=== PATIENT | female | born 1985 | race Caucasian/White ===

== ENCOUNTER 2019-03-11 13:04 | Inpatient (IN) | payer SELFPAY ==
[~2019-03-11] VITALS: Ht 162.6 cm; Wt 59.0 kg
[2019-03-11] MEDS ORDERED: KETOROLAC TROMETHAMINE 30 MG/ML VIAL IM ONE (13:36)
--- NOTE | 2019-03-11 14:45 | Diagnostic Imaging Report ---
EXAMINATION: SHOULDER LEFT COMPLETE INDICATION: Shoulder pain COMPARISON: None FINDINGS: Internal and external rotation views of the left shoulder demonstrate no acute fracture or dislocation. Alignment is anatomic. A mortise calcific density superficial to the left humeral head is compatible with calcific tendinopathy. Please refer to the concurrently reported chest radiograph for intrathoracic findings. IMPRESSION: No acute osseous injury. Calcific tendinopathy of the left rotator cuff. Signed by: Florida Merchant MD on 03/11/2019 2:42 PM
[2019-03-11] MEDS ORDERED: SODIUM CHLORIDE 0.9% 1000ML 1,000 ML ONE ×2 (14:46→16:15)
--- NOTE | 2019-03-11 14:49 | Diagnostic Imaging Report ---
EXAMINATION: CHEST 2 VIEWS INDICATION: Chest pain COMPARISON: None FINDINGS: LINES/TUBES:None LUNGS/PLEURA:There is extensive opacification of the left lung, likely reflecting a combination of loculated left pleural effusion and left lung airspace consolidation. The right lung is clear. MEDIASTINUM:The heart is at the upper limits of normal in size. BONES/SOFT TISSUES:No acute osseous injury. ABDOMEN:No free air under the diaphragm. IMPRESSION: Extensive opacification of the left lung likely reflects combination of loculated left pleural effusion and airspace consolidation which can be seen with pneumonia, aspiration, or pulmonary hemorrhage. RECOMMENDATIONS: Chest CT. The above findings were discussed with Dr. Blank on 03/11/2019 2:42 PM, who responded indicating that the communication was understood. Signed by: Florida Merchant MD on 03/11/2019 2:46 PM
[2019-03-11] MEDS ORDERED: LEVOFLOXACIN 750MG/D5W 150ML 150 ML IV ONE (15:00)
[2019-03-11] MEDS ORDERED: PIPERACILLIN/TAZO 4.5 GM 100 ML IV ONE ×2 (15:00→16:45)
[2019-03-11 15:10] LABS: BASOPHILS # (AUTO) 0.1 (0.0-0.1); BASOPHILS % 0.2 % (0.0-1.0); EOSINOPHILS # (AUTO) 0.1 (0.0-0.4); EOSINOPHILS % 0.2 % (0.0-6.0); HEMATOCRIT 31.8 % (34.2-44.1); HEMOGLOBIN 9.6 g/dL (12.0-16.0); LYMPHOCYTES # (AUTO) 0.9 (1.0-3.2); LYMPHOCYTES % 2.1 % (18.0-39.1); MEAN CORPUSCULAR HEMOGLOBIN 21.8 pg (28-32); MEAN CORPUSCULAR HGB CONC 30.2 g/dL (31-35); MEAN CORPUSCULAR VOLUME 72.1 fL (81-99); MONOCYTES # (AUTO) 2.1 (0.2-0.8); MONOCYTES % 5.1 % (4.4-11.3); NEUTROPHILS # (AUTO) 36.8 (2.1-6.9); NEUTROPHILS % 89.5 % (38.7-80.0); PLATELET COUNT 476 x10e3/uL (140-360); RED BLOOD COUNT 4.41 x10e6/uL (3.6-5.1); RED CELL DISTRIBUTION WIDTH 17.1 % (11.7-14.4)
[2019-03-11 15:26] LABS: ALBUMIN 1.9 g/dL (3.5-5.0); ALBUMIN/GLOBULIN RATIO 0.4 (0.8-2.0); ALKALINE PHOSPHATASE 112 IU/L (40-150); ANION GAP 15.8 mmol/L (8-16); BLOOD UREA NITROGEN 23 mg/dL (7-26); BUN/CREATININE RATIO 31 (6-25); CALCIUM 10.1 mg/dL (8.4-10.2); CARBON DIOXIDE 26 mmol/L (22-29); CHLORIDE 93 mmol/L (98-107); CREATININE, SERUM 0.75 mg/dL (0.57-1.11); EST GLOMERULAR FILTRATION RATE > 60 ML/MIN (60-); GLUCOSE 129 mg/dL (74-118); POTASSIUM 3.8 mmol/L (3.5-5.1); SODIUM 131 mmol/L (136-145)
[2019-03-11 15:29] LABS: ALANINE AMINOTRANSFERASE < 6 IU/L (0-55)
[2019-03-11] MEDS ORDERED: MORPHINE SULFATE 2 MG/ML SYR 1ML IV PRN (15:30)
[2019-03-11] MEDS ORDERED: MORPHINE SULFATE INJ 4 MG/ML INJ 1ML IV PRN ×2 (15:30→19:30)
--- NOTE | 2019-03-11 16:00 | Diagnostic Imaging Report ---
EXAMINATION: CT scan of the chest without contrast. TECHNIQUE: Helical CT images of the chest were performed from the lung apices to the level of the adrenal glands. No intravenous contrast was administered . Coronal and sagittal reformatted images were obtained.Dose modulation, iterative reconstruction, and/or weight based adjustment of the mA/kV was utilized to reduce the radiation dose to as low as reasonably achievable. COMPARISON: None. CLINICAL HISTORY:Shoulder pain DISCUSSION: ABSENCE OF INTRAVENOUS CONTRAST DECREASES SENSITIVITY FOR DETECTION OF FOCAL LESIONS AND VASCULAR PATHOLOGY. LINES/TUBES: None. LUNGS AND AIRWAYS: The right lung is clear. Areas of atelectasis in the left lung PLEURA: Large loculated pleural effusion throughout the left hemithorax. HEART AND MEDIASTINUM: The thyroid gland is normal. The heart and pericardium are within normal limits. LYMPH NODES: Prominent number mediastinal lymph nodes ABDOMEN: Limited contrast-enhanced views of the upper abdomen show no abnormality within the visualized liver, spleen, pancreas, or kidneys. The adrenal glands are normal. BONES AND SOFT TISSUES: Focus of calcific tendinopathy supraspinatus. IMPRESSION: Large loculated left pleural effusion with areas of atelectasis. Recommend fluid sampling. Calcific tendinopathy of the supraspinatus. Signed by: Dr. Alexandru Goodson M.D. on 03/11/2019 3:56 PM
--- OUTSIDE RECORDS SUMMARY | 2019-03-11 16:03 | XMS REPORT ---
Author Author [facility] Address Unknown Phone Unavailable Care Team Providers Care International Student Counselor Name Role Phone Suleman MENA Unavailable Unavailable Problems This patient has no known problems. Allergies, Adverse Reactions, Alerts This patient has no known allergies or adverse reactions. Medications This patient has no known medications. Results Test Description Test Time Test Comments Text Results Atomic Results Result Comments CT CHEST WO 2019-03-11 15:51:00 [facility] [address] [place] [address] Patient Name: LAURE AYALA MR #: [id number] : 1985 Age/Sex: 33/F Req #: [id number] Adm Physician: MIKE MENA MD Ordered by: DOM MARROQUIN DO Report #: [id number] Location: [facility] Room/Bed: [place] [address] Procedure: [id number] CT/CT CHEST WO Exam Date: Exam Time: REPORT STATUS: Signed EXAMINATION: CT scan of the chest without contrast. TECHNIQUE: Helical CT images of the chest were performed from the lung apices to the level of the adrenal glands. No intravenous contrast was administered . Coronal and sagittal reformatted images were obtained.Dose modulation, iterative reconstruction, and/or weight based adjustment of the mA/kV was utilized to reduce the radiation dose to as low as reasonably achievable. COMPARISON: None. CLINICAL HISTORY:Shoulder pain DISCUSSION: ABSENCE OF INTRAVENOUS CONTRAST DECREASES SENSITIVITY FOR DETECTION OF FOCAL LESIONS AND VASCULAR PATHOLOGY. LINES/TUBES: None. LUNGS AND AIRWAYS: The right lung is clear. Areas of atelectasis in the left lung PLEURA: Large loculated pleural effusion throughout the left hemithorax. HEART AND MEDIASTINUM: The thyroid gland is normal. The heart and pericardium are within normal limits. LYMPH NODES: Prominent number mediastinal lymph nodes ABDOMEN: Limited contrast-enhanced views of the upper abdomen show no ab normality within the visualized liver, spleen, pancreas, or kidneys. The adrenal glands are normal. BONES AND SOFT TISSUES: Focus of calcific tendinopathy supraspinatus. IMPRESSION: Large loculated left pleural effusion with areas of atelectasis. Recommend fluid sampling. Calcific tendinopathy of the supraspinatus. Signed by: Dr. Nura Garcia M.D. on 03/11/2019 3:56 PM Dictated By: NURA GARCIA MD 1556 Transcribed By: IRAJ on 03/11/19 1556 COPY TO: DOM MARROQUIN DO CHEST 2 VIEWS 2019-03-11 14:42:00 [place] [address] Patient Name: LAURE AYALA MR #: [id number] : 1985 Age/Sex: 33/F Req #: [id number] Adm Physician: Ordered by: DOM MARROQUIN DO Report #: [id number] Location: ER Room/Bed: Procedure: [id number] DX/CHEST 2 VIEWS Exam Date: 03/11/19 Exam Time: 1357 REPORT STATUS: Signed EXAMINATION: CHEST 2 VIEWS INDICATION: Chest pain COMPARISON: None FINDINGS: LINES/TUBES:None LUNGS/PLEURA:There is extensive opacification of the left lung, likely reflecting a combination of loculated left pleural effusion and left lung airspace consolidation. The right lung is clear. MEDIASTINUM:The heart is at the upper limits of normal in size. BONES/SOFT TISSUES:No acute osseous injury. ABDOMEN:No free air under the diaphragm. IMPRESSION: Extensive opacification of the left lung likely reflects combination of loculated left pleural effusion and airspace consolidation which can be seen with pneumonia, aspiration, or pulmonary hemorrhage. RECOMMENDATIONS: Chest CT. The above findings were discussed with Dr. Marroquin on 03/11/2019 2:42 PM, who responded indicating that the communication was understood. Signed by: Chandrika Merchant MD on 03/11/2019 2:46 PM Dictated By: CHANDRIKA MERCHANT MD 1446 Transcribed By: IRAJ on 03/11/19 1446 COPY TO: DOM MARROQUIN DO SHOULDER LEFT COMPLETE 2019-03-11 14:40:00 [place] [address] Patient Name: LAURE AYALA MR #: [id number] : 1985 Age/Sex: 33/F Req #: [id number] Adm Physician: Ordered by: DOM MARROQUIN DO Report #: [id number] Location: ER Room/Bed: Procedure: [id number] DX/SHOULDER LEFT COMPLETE Exam Date: Exam Time: REPORT STATUS: Signed EXAMINATION: SHOULDER LEFT COMPLETE INDICATION: Shoulder pain COMPARISON: None FINDINGS: Internal and external rotation views of the left shoulder demonstrate no acute fracture or dislocation. Alignment is anatomic. A mortise calcific density superficial to the left humeral head is compatible with calcific tendinopathy. Please refer to the concurrently reported chest radiograph for intrathoracic findings. IMPRESSION: No acute osseous injury. Calcific tendinopathy of the left rotator cuff. Signed by: Chandrika Merchant MD on 03/11/2019 2:42 PM Dictated By: CHANDRIKA MERCHANT MD 1442 Transcribed By: IRAJ on 03/11/19 1442 COPY TO: DOM MARROQUIN DO
[2019-03-11] MEDS ORDERED: SODIUM CHLORIDE 0.9% 1000ML 1,000 ML IV STA ×2 (16:13)
[2019-03-11] MEDS: ONDANSETRON HCL INJ 2MG/ML 2ML 2 MG/ML VIAL IV PRN (16:34)
--- NOTE | 2019-03-11 16:50 | NUR ---
DR Chato BRAMBILA AT PT BEDSIDE
[2019-03-11] MEDS ORDERED: LIDOCAINE HCL 1% LOCAL INJ 20 ML VIAL ONE ×2 (17:27→20:07)
[2019-03-11] MEDS: SODIUM CHLORIDE 0.9% 1000ML 1,000 ML IV SCH (17:52)
[2019-03-11] MEDS: VANCOMYCIN 1GM/NS 250 ML 250 ML IV SCH (17:52)
--- NOTE | 2019-03-11 19:11 | NUR ---
PT AWAKE ALERT SKIN W/D RESP NONLAB. NAD NOTED. CHEST TUBE SETUP AT BEDSIDE.
--- NOTE | 2019-03-11 19:29 | NUR ---
REPEAT LACTIC COLLECTED AND SENT
[2019-03-11] MEDS: MORPHINE SULFATE 2 MG/ML SYR 1ML IV PRN (20:15)
[2019-03-11 20:27] LABS: BAND NEUTROPHILS % (MANUAL) 2 %; LYMPHOCYTES % (MANUAL) 2 % (19-48); METAMYELOCYTES % (MANUAL) 3 % (0-0); MONOCYTES % (MANUAL) 3 % (3.4-9.0); NEUTROPHILS % (MANUAL) 90 % (40-74)
[2019-03-11 20:28] LABS: ANISOCYTOSIS SLIGHT; HYPOCHROMASIA SLIGHT; PLATELET ESTIMATE SLIGHTLY INCREASED; PLATELET MORPHOLOGY COMMENT NORMAL; POIKILOCYTOSIS SLIGHT; RBC MORPHOLOGY COMMENT NORMAL
--- NOTE | 2019-03-11 20:30 | NUR ---
DR CLOUD AT BEDSIDE, ASSISTED WITH CHEST TUBE INSERTION LEFT CHEST WALL. TOLERATED WELL. PORTABLE CXR ORDERED
--- NOTE | 2019-03-11 20:35 | NUR ---
CHEST TUBE DRESSED WITH ALEXA GAUZE,4X4, AND SECURED WITH FOAM TAPE. TOLERATED WELL.
--- NOTE | 2019-03-11 20:45 | NUR ---
REGISTERED NURSING PROFESSOR AT BEDSIDE FOR CXR
--- NOTE | 2019-03-11 20:55 | Diagnostic Imaging Report ---
Examination: Single AP view of the chest. COMPARISON: None. INDICATION: Chest tube DISCUSSION: Lines/tubes: Interval placement of a left-sided chest tube Lungs: Large loculated pleural effusion with areas of atelectasis. Heart and mediastinum: The heart and the mediastinum are unremarkable. Bones and soft tissues: No acute bony abnormalities. IMPRESSION: 1. Left chest tube with persistent large left loculated effusion and atelectasis Signed by: Dr. Alexandru Goodson M.D. on 03/11/2019 8:52 PM
--- NOTE | 2019-03-11 20:55 | NUR ---
DR CLOUD REVIEWED CXR POST PROCEDURE. AWAKE ALERT SKIN W/D RESP NONLAB. NAD NOTED. PT STATES SHE FEELS BETTER POST PROCEDURE.
--- NOTE | 2019-03-11 20:59 | NUR ---
Report received from MATTEO Garza. Patient admitted in unit @ 2058 by stretcher. Patient alert/oriented x3. Patient had left side dressing with chest tube continued. Patient continued on 2liters oxygen via nasal nasal. Respiration even and unlabored. No SOB noted. Head to toe assessment completed. No skin breakdown noted. Bed in lower position,locked. Call moore within reach. Patient instructed to call fro help as needed, verbalized and understand. Will continue to monitor.
[2019-03-11 21:16] LABS: BODY FLUID APPEARANCE TURBID; BODY FLUID COLOR RED; BODY FLUID TYPE PLEURAL; RBC,BODY FLUID 32373 cells/uL; WBC,BODY FLUID 29700 cells/uL
[2019-03-11 22:00] VITALS: BP 108/66
[2019-03-11 22:07] LABS: LYMPHOCYTES,BODY FLUID 72 %; MONO/MACROPHG,BODY FLUID 16 %; NEUTROPHILS,BODY FLUID 12 %
[2019-03-11] MEDS: CEFEPIME 1GM/NS 0.9% 50 ML 50 ML IV SCH (22:55)
[2019-03-11 23:03] VITALS: BP 108/66
[2019-03-11 23:12] VITALS: BP 108/66
[2019-03-12] VITALS (9 sets, daily range): BP systolic 109–126; BP diastolic 54–114
[2019-03-12] MEDS: MORPHINE SULFATE 2 MG/ML SYR 1ML IV PRN ×2 (00:12→11:05)
[2019-03-12] MEDS: ONDANSETRON HCL INJ 2MG/ML 2ML 2 MG/ML VIAL IV PRN ×2 (00:13→11:05)
--- NOTE | 2019-03-12 00:20 | Consultation ---
DATE OF CONSULTATION: 03/11/2019 Pulmonary Critical Care Consultation CHIEF COMPLAINT: Fever, malaise, and loculated pleural effusion. 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 She has no other past medical history. She reports malaise and fatigue for the past week. She has noticed some cough and some decreased appetite. She has a low-grade fever. When she came to the ER, she had infiltrate and effusion on the left lung. A subsequent CT scan showed a loculated left pleural effusion. PAST SURGICAL HISTORY: 1. Status post removal of the right eye because of retinoblastoma. 2. No prior history of pneumonia, respiratory problems, or cardiac disease. PAST MEDICAL HISTORY: 1. No history of asthma. 2. History of retinoblastoma. ALLERGIES: NO KNOWN DRUG ALLERGIES. SOCIAL HISTORY: The patient is not a smoker. She is not a drinker. FAMILY HISTORY: Her father was recently diagnosed with cancer. REVIEW OF SYSTEMS: Low-grade fevers and malaise. No headache. The patient has some cough and some mild dyspnea. She reports pain in the left shoulder area and left lateral rib cage. She denies nausea, vomiting. There is no abdominal pain. She has no leg edema. PHYSICAL EXAMINATION: VITAL SIGNS: The patient is afebrile. The vital signs are stable. HEENT: Shows no facial swelling or erythema. CARDIAC: Reveals regular rate and rhythm with normal S1 and S2. LUNGS: Auscultation of lungs shows decreased breath sounds on the left side. ABDOMEN: Soft, nontender. There is no rebound or guarding. EXTREMITIES: Show no leg edema or calf tenderness. There is no cyanosis or clubbing. SKIN: Shows no rashes. NEUROLOGIC: Shows no focal abnormalities. RADIOGRAPHIC DATA: CT scan of the chest shows a loculated left pleural effusion. LABORATORY DATA: White blood cell count is 41 and hemoglobin is 9.6. The platelet count is normal. IMPRESSION: 1. Community-acquired pneumonia with parapneumonic effusion and sepsis, present on admission. 2. Loculated left pleural effusion, suggestive of possible empyema. 3. Remote history of retinoblastoma. PLAN: 1. The patient will need an ultrasound-guided thoracentesis with pleural fluid analysis to rule out empyema. 2. CT Surgery consultation depending on results of thoracentesis. 3. Antibiotics. 4. Intravenous fluids. MD ALBER Jacques/CARLYN /[id number]
--- NOTE | 2019-03-12 01:15 | NUR ---
Called to notified about patient's Heart rate above 130 and Temp:100.1, Resp:28 and BP:105/67. ordered p/o Tylenol 650mg q6 PRN and IV Toradol 15mg q6 PRN at this time.
[2019-03-12] MEDS: ACETAMINOPHEN 325 MG TAB PO PRN ×2 (01:16→17:41)
[2019-03-12] MEDS ORDERED: ACETAMINOPHEN 325 MG TAB ONE (01:18)
--- NOTE | 2019-03-12 01:25 | Operative Report ---
DATE OF PROCEDURE: 03/11/2019 SURGEON: Prince Tenorio MD PROCEDURE: Ultrasound-guided thoracentesis. CONSENT: Consent was obtained from the patient. PREOPERATIVE DIAGNOSIS: Loculated left pleural effusion. POSTOPERATIVE DIAGNOSIS: Loculated left pleural effusion. ANESTHESIA: 1% lidocaine. PROCEDURE IN DETAIL: The patient was placed in upright position leaning forward. The left lateral chest was prepped sterilely. The area over the left posterior intercostal space over the 8th rib was anesthetized. Ultrasound was used to visualize the pleural space. There were pockets of loculated fluid with some echogenic material within the fluid. A 21-gauge needle was used to find the pleural space, but no fluid could be withdrawn. COMPLICATIONS: None. ESTIMATED BLOOD LOSS: None. Prince Tenorio MD [facility]/MODL /[id number]
--- NOTE | 2019-03-12 02:00 | History and Physical ---
CHIEF COMPLAINT: Left shoulder pain. HISTORY OF PRESENT ILLNESS: This is a 33-year-old female with history of retinoblastoma in the past, comes into the emergency room department with complaints of left shoulder pain after she reports that she was moving some objects leading to the left shoulder pain. The patient reports this occurred about several days ago when she was moving some furniture. The patient presented to the ER for further management and care. While here, she was found to have a temperature of 100.2, white count of 41, and imaging studies consistent with a complete whiteout of her left lung. The patient denies any cough, congestion, recent sickness, chest pain, or any other complaints. She does complain of pleuritic chest pain on deep inspiration. She does report having difficult time taking a deep breath. The patient was seen and evaluated at bedside on the medical floor. Currently, she is doing well and stable. Vital signs were stable when I evaluated her and systolic blood pressure was 117/66. REVIEW OF SYSTEMS: Pertinent positives left shoulder pain, shortness of breath. Pertinent negatives: Denies any chest pain, palpitation, nausea, vomiting, diarrhea, dysuria, hematuria, frequency, urgency, lightheadedness, dizziness, abdominal pain, headaches, cough, congestion, fever, or any other complaints. The rest of 14-point review of systems are reviewed with the patient and are negative. ALLERGIES: TO METHOCARBAMOL AND TRAMADOL. HOME MEDICATIONS: None. PAST MEDICAL HISTORY: Retinoblastoma. PAST SURGICAL HISTORY: Reports none. FAMILY HISTORY: Hypertension and diabetes. SOCIAL HISTORY: No drugs. No alcohol. Does not smoke. Good social support. PHYSICAL EXAMINATION: VITAL SIGNS: Temperature is 98.5, pulse 96, respiratory rate is 12, blood pressure is 117/66, and pulse ox 97% on room air. GENERAL: Not in acute distress. Alert and oriented x3. Cooperative on examination. HEENT: Head normocephalic, atraumatic. Eyes; pupils are equal, round, and reactive to light bilaterally. Extraocular movements intact bilaterally. NECK: Supple. Good range of motion. Throat, no evidence of erythema or exudates in the posterior pharynx. Has poor dentition. PULMONARY: She has decreased breath sounds in the left lung field still well with some very slight wheezing, no crackles. CARDIOVASCULAR: Positive S1 and S2. No murmurs, rubs, or gallops appreciated. ABDOMEN: Soft, nondistended, and nontender to palpation. Bowel sounds present. MUSCULOSKELETAL: Strength is 5/5 throughout. No evidence of any muscle deficits on examination. No weakness appreciated. NEUROLOGIC: Cranial nerves II through XII grossly intact. No evidence of any neurological deficits on exam. SKIN: Intact. Warm to touch. Good cap refill. PSYCHIATRIC: Normal affect and mood. EXTREMITIES: No edema. Good range of motion throughout. LAB FINDINGS: Show white count was 41, hemoglobin 9.6, hematocrit 31, MCV 72, and platelets of 476. Chemistry: Sodium 131, potassium 3.8, chloride 93, bicarb 26, anion gap of 15, BUN is 23, creatinine 0.75, glucose 129. Lactic acid was 22, calcium 10.1, total bilirubin was 0.4, AST 11, ALT 6, alkaline phosphatase 112, total protein 7.3, and albumin 1.9. MICROBIOLOGY: Blood cultures are pending. IMAGING STUDIES: Shoulder x-ray, no acute osseous injury. Calcific tendinopathy in the left rotator cuff. Chest x-ray shows extensive opacification of the left lung likely reflects combination of likely left pleural effusion and airspace consolidation, which may be seen with pneumonia aspiration and pulmonary hemorrhage. CT chest shows large loculated left pleural effusion with areas of atelectasis. IMPRESSION: 1. Sepsis with loculated left lung likely due to underlying pneumonia. 2. Community-acquired pneumonia. 3. Leukocytosis with fever secondary to #1. PLAN: At this time CT imaging and chest x-ray results noted. Pulmonary was consulted, attempted to aspirate some fluid from the loculation, but unsuccessful. CT surgery is now consulted to help with this case. She will likely need some sort of decortication. ID was consulted. She is on broad-spectrum IV antibiotics IV vancomycin and cefepime. Continue with pain control. Monitor blood cultures. Resume same home medications once they are available. Continue with IV fluids, regular diet. CONSULTANTS: Pulmonary, ID, and CT Surgery. MD CIELO Small/CARLYN /[id number]
--- NOTE | 2019-03-12 02:50 | Consultation ---
DATE OF CONSULTATION: 03/11/2019 REASON FOR CONSULTATION: Left pleural effusion; requested by Dr. Prince Tenorio. HISTORY OF PRESENT ILLNESS: I saw and evaluated this patient on March 11, 2019. She is a 33-year-old lady without any real past medical history, who came into the emergency room complaining of left chest pain. This had apparently been going on for the last several days. A chest x-ray was obtained and revealed a large left pleural effusion with consolidation of much of the left chest. CT scan confirmed the presence of a left pleural effusion. Thoracentesis was performed, but did not return much fluid. Surgical consultation is now requested. MEDICATIONS AT HOME: None. ALLERGIES: NONE. SOCIAL HISTORY: Negative for smoking, alcohol, IV drugs. Lives at home with her mother. FAMILY HISTORY: Negative for early coronary artery disease or exposure to TB. Negative for pulmonary problems. PAST MEDICAL HISTORY: Unremarkable. There is no history of smoking. The patient denies sputum production. No history of fevers or chills recently. Has not had any previous pulmonary problems. REVIEW OF SYSTEMS: GENERAL: Positive for fatigue and malaise. NEUROLOGIC: Negative for focal weakness in extremities or dysarthria. HEENT: Negative for decreased vision or decreased hearing. CARDIAC: Positive for chest pain. Negative for palpitation. PULMONARY: Denies shortness of breath or wheezing. GI: No constipation or diarrhea. : Negative for hematuria or dysuria. ENDOCRINE: Negative for polyuria or polydipsia. VASCULAR: Negative for claudication. SKIN: Negative for rashes or itching. HEMATOLOGIC: Negative for clotting or bleeding. INFECTIOUS: Denies fevers or sweating. PSYCHIATRIC: Negative for depression or anxiety. PHYSICAL EXAMINATION: GENERAL: Well-developed, well-nourished lady, sitting up on the gurney in the emergency room. VITAL SIGNS: Blood pressure 140/70, pulse 85 and regular, and respirations 16 and unlabored. NECK: Supple. Nontender, but no JVD. CARDIAC: Shows a regular rate and rhythm. There is a normal S1, S2. No S3, S4, rub, or murmur. LUNGS: Absent breath sounds on the left with some rhonchi. On the right, breath sounds are full and clear. ABDOMEN: Globoid, benign. Good bowel sounds. No hepatosplenomegaly. BACK: No CVA tenderness. No muscular spasm. EXTREMITIES: No cyanosis, clubbing, or edema. VASCULAR: Carotids 2+/2+ bilaterally. No carotid bruits. Radials 2+/2+ bilaterally. Femorals 2+/2+ bilaterally. SKIN: No rashes or nonhealing ulcers. MUSCULOSKELETAL: Full range of motion at all joints. No joint swelling. NEUROLOGIC: Cranial nerves II through XII intact. Sensation intact to light touch and pinprick bilaterally. Strength 5/5 in all extremities. LYMPHATICS: Negative for cervical, clavicular, or femoral adenopathy. IMAGING: CT scan and chest x-ray are reviewed and as are above. Left chest is largely opacified. There is some aeration of the left lung on CT scan. CT scan has been read as left pleural effusion. IMPRESSION: Large loculated left pleural effusion. I agree with the need for drainage via thoracostomy tube. I described the procedure to the patient. I told her that the risks would include , bleeding, infection, heart attack, stroke, pneumonia, prolonged ICU stay, mechanical ventilation, recurrence of the effusion, probable need for surgical drainage in the future, et cetera. The patient stated that she understood, had no further questions and I gave consent to proceed. Thank you very much for asking me to see this nice lady. MD ADRIAN FaithL/MODL /[id number]
[2019-03-12] MEDS: KETOROLAC TROMETHAMINE 30 MG/ML VIAL IV PRN ×2 (03:08→12:59)
[2019-03-12] MEDS: SODIUM CHLORIDE 0.9% 1000ML 1,000 ML IV SCH ×2 (03:11→07:21)
--- NOTE | 2019-03-12 03:55 | Operative Report ---
DATE OF PROCEDURE: 03/11/2019 SURGEON: Jean Graham MD PREOPERATIVE DIAGNOSIS: Loculated left pleural effusion. POSTOPERATIVE DIAGNOSIS: Loculated left pleural effusion. PROCEDURE: Placement of left chest tube. INDICATIONS: This is a 33-year-old lady, who presented to the emergency room with a loculated left pleural effusion. Chest x-ray and CT scan showed opacification of nearly the entire left lung. A thoracentesis was not beneficial. Chest tube drainage is now recommended. Prior to the procedure, the patient was informed of the risks of the procedure including , bleeding, infection, heart attack, stroke, pneumonia, prolonged ICU stay, possible need for further surgery, et cetera. She stated that she understood, no further questions, and wanted to proceed. FINDINGS: Uneventful left chest tube placement. PROCEDURE IN DETAIL: Procedure done at the bedside in the emergency room under sterile conditions with a 1% Xylocaine local anesthesia. A #28 [place] chest tube inserted uneventfully. Return from the chest tube was foul smelling and quite thick. Digital exam during the procedure seemed to show loculated lung. Chest tube affixed in place. Chest x-ray ordered. Sterile dressings applied. Jean Graham MD [facility]/MODL /[id number]
[2019-03-12] MEDS: VANCOMYCIN 1GM/NS 250 ML 250 ML IV SCH ×2 (05:15→17:00)
[2019-03-12 05:26] LABS: BASOPHILS % 0.2 % (0.0-1.0); EOSINOPHILS % 0.1 % (0.0-6.0); HEMATOCRIT 26.2 % (34.2-44.1); HEMOGLOBIN 7.6 g/dL (12.0-16.0); LYMPHOCYTES # (AUTO) 1.1 (1.0-3.2); LYMPHOCYTES % 4.2 % (18.0-39.1); MEAN CORPUSCULAR HEMOGLOBIN 21.7 pg (28-32); MEAN CORPUSCULAR VOLUME 74.6 fL (81-99); MONOCYTES # (AUTO) 1.5 (0.2-0.8); MONOCYTES % 5.7 % (4.4-11.3); NEUTROPHILS # (AUTO) 22.7 (2.1-6.9); NEUTROPHILS % 88.8 % (38.7-80.0); PLATELET COUNT 295 x10e3/uL (140-360); RED BLOOD COUNT 3.51 x10e6/uL (3.6-5.1); RED CELL DISTRIBUTION WIDTH 17.2 % (11.7-14.4)
[2019-03-12 06:03] LABS: ALBUMIN 1.5 g/dL (3.5-5.0); ALBUMIN/GLOBULIN RATIO 0.3 (0.8-2.0); ALKALINE PHOSPHATASE 89 IU/L (40-150); ANION GAP 14.7 mmol/L (8-16); BLOOD UREA NITROGEN 19 mg/dL (7-26); BUN/CREATININE RATIO 35 (6-25); CALCIUM 8.9 mg/dL (8.4-10.2); CARBON DIOXIDE 21 mmol/L (22-29); CHLORIDE 102 mmol/L (98-107); CREATININE, SERUM 0.55 mg/dL (0.57-1.11); EST GLOMERULAR FILTRATION RATE > 60 ML/MIN (60-); GLUCOSE 90 mg/dL (74-118); POTASSIUM 3.7 mmol/L (3.5-5.1); SODIUM 134 mmol/L (136-145)
[2019-03-12 06:09] LABS: ALANINE AMINOTRANSFERASE < 6 IU/L (0-55)
--- NOTE | 2019-03-12 06:43 | NUR ---
Paged Dr Santos and left massages to answering service about MD's consult at this time.
[2019-03-12] MEDS: CEFEPIME 1GM/NS 0.9% 50 ML 50 ML IV SCH ×3 (07:07→21:28)
--- NOTE | 2019-03-12 07:27 | NUR ---
Report given to oncoming nurse, walking round done.
[2019-03-12 07:59] LABS: LYMPHOCYTES % (MANUAL) 3 % (19-48); MONOCYTES % (MANUAL) 4 % (3.4-9.0); NEUTROPHILS % (MANUAL) 93 % (40-74)
[2019-03-12 08:00] LABS: HYPOCHROMASIA SLIGHT; PLATELET ESTIMATE ADEQUATE; RBC MORPHOLOGY COMMENT ABNORMAL
--- NOTE | 2019-03-12 12:06 | NUR ---
informed dr lai, patient c/o substernal chest pain, HR 129-130, ORDERS RECEIVED FOR CARDIAC MARKERS X3, ONCOMING NURSE INFORMED
[2019-03-12] MEDS: HYDROCODONE/APAP 5MG-325MG TAB PO PRN (13:07)
[2019-03-12] MEDS: METOPROLOL TARTRATE 25 MG TAB PO SCH ×2 (14:48→21:28)
[2019-03-12 15:42] LABS: CREATINE KINASE MB 0.6 ng/mL (0-5.0)
--- NOTE | 2019-03-12 16:02 | Progress Note ---
DATE: 03/12/2019 Medicine Progress Note SUBJECTIVE: The patient had status post chest tube placed yesterday by CT Surgery. She is currently doing well. She still has pain around the site of the chest tube. She is on pain medications as well as Toradol. Overall, her heart rate is slightly elevated likely due to pain. She is otherwise doing okay with no other issues. She is on broad-spectrum IV antibiotics. Her white count did improve. Several consultants were involved in this patient's care. PHYSICAL EXAMINATION: VITAL SIGNS: Temperature is 97, T-max 100.1, pulse 114, respiratory rate is 24, blood pressure is 111/74, pulse ox 100% on nasal cannula. GENERAL: Not in acute distress, alert, oriented x3. Cooperative on examination. HEENT: Head normocephalic, atraumatic. Eyes; pupils are equal, round, and reactive to light bilaterally. Extraocular movements are intact bilaterally. Throat; no evidence of erythema or exudates in the posterior pharynx. Has poor dentition. NECK: Supple. Good range of motion. PULMONARY: Clear to auscultation bilaterally. No wheezing, rales, or rhonchi. No crackles appreciated. Decreased breath sounds in the left lung field. Chest tube on the left chest wall. CARDIOVASCULAR: Positive S1, S2. No murmurs, rubs, or gallops appreciated. ABDOMEN: Soft, nondistended, and nontender to palpation. Bowel sounds present. MUSCULOSKELETAL: Strength is 5/5 throughout. No evidence of any muscle deficits on examination. No weakness appreciated. NEUROLOGIC: Cranial nerves II through XII grossly intact. No evidence of any neurological deficits on exam. SKIN: Intact. Warm to touch. Good cap refill. PSYCHIATRIC: Normal affect and mood. EXTREMITIES: No edema, good range of motion throughout. LABORATORY DATA: White count is 25 much improved for 41, hemoglobin 7.6, hematocrit 26, platelets of 295. Chemistry; sodium 134, potassium 3.7, chloride 102, bicarb 21, anion gap of 14, BUN 90, creatinine 0.55, glucose is 90. Lactic acid improved now to 8.3, normal in this hospital, calcium 8.9, albumin 1.5. fluid shows significant WBCs and RBCs. MICROBIOLOGY: Body fluid Gram stain shows gram-positive cocci in pairs, pending final growth. Blood cultures, no growth to date. IMAGING STUDIES: This is a chest x-ray post left-sided chest tube, shows persistent large left loculated effusion and atelectasis. IMPRESSION: 1. Sepsis with loculated left lung, status post chest tube placement with drainage. 2. Community-acquired pneumonia. 3. Leukocytosis and fever secondary to sepsis with loculated left lung, status post chest tube placement with drainage. 4. Sinus tachycardia, likely secondary to pain and fever and underlying sepsis. PLAN: At this time, she has a left-sided chest tube. Repeat chest x-ray still shows loculated effusion. It is still draining. CT surgery is following. We will likely need a thoracotomy sometime next week. Still pending pleural fluid, cultures, still on IV antibiotics. ID is following. Pulmonary is also consulted and monitoring closely. In relation to her underlying tachycardia, put on a low-dose beta john. I think this is all secondary to pain, fever, sepsis. Continue with pain control. She is on broad-spectrum IV antibiotics, being managed by Infectious Disease. CONSULTANTS: Pulmonary, ID, CT surgery. Will continue to follow with them. MD CIELO Small/CARLYN /[id number]
--- NOTE | 2019-03-12 16:53 | Progress Note ---
DATE: 03/12/2019 Pulmonary Progress Note SUBJECTIVE: The patient had a chest tube placed yesterday and has some purulent sanguinous drainage. She reports some symptomatic improvement. PHYSICAL EXAMINATION: VITAL SIGNS: The patient is afebrile. The vital signs are stable. HEENT: Shows no facial swelling or erythema. CARDIAC: Reveals regular rate and rhythm with normal S1 and S2. There are no murmurs or rubs heard. LUNGS: Auscultation of lungs shows clear breath sounds bilaterally. There are decreased breath sounds on the left side. ABDOMEN: Soft, nontender. There is no rebound or guarding. EXTREMITIES: Show no leg edema or calf tenderness. There is no cyanosis or clubbing. LABORATORY DATA: White blood cell count is 25. IMPRESSION: Community-acquired pneumonia with empyema. PLAN: 1. Continue thoracostomy drainage. 2. Discuss infusions of tPA and Pulmozyme into the pleural space with CT Surgery. 3. If no further improvement, the patient may require a limited thoracotomy. 4. Continue current antibiotics. 5. Repeat chest x-ray and CBC in the morning. Prince Tenorio MD [facility]/MODL /[id number]
[2019-03-12 18:32] LABS: BASOPHILS # (AUTO) 0.1 (0.0-0.1); BASOPHILS % 0.2 % (0.0-1.0); HEMATOCRIT 27.2 % (34.2-44.1); LYMPHOCYTES # (AUTO) 1.2 (1.0-3.2); LYMPHOCYTES % 4.1 % (18.0-39.1); MEAN CORPUSCULAR HEMOGLOBIN 21.7 pg (28-32); MEAN CORPUSCULAR HGB CONC 29.4 g/dL (31-35); MEAN CORPUSCULAR VOLUME 73.9 fL (81-99); MONOCYTES # (AUTO) 0.7 (0.2-0.8); MONOCYTES % 2.6 % (4.4-11.3); NEUTROPHILS # (AUTO) 26.7 (2.1-6.9); NEUTROPHILS % 92.1 % (38.7-80.0); PLATELET COUNT 461 x10e3/uL (140-360); RED BLOOD COUNT 3.68 x10e6/uL (3.6-5.1); RED CELL DISTRIBUTION WIDTH 17.2 % (11.7-14.4)
[2019-03-12 19:23] LABS: HIV 1&2 AB SCREEN NON-REACTIVE (NONREACTIVE)
--- NOTE | 2019-03-12 19:35 | NUR ---
Handoff report to oncoming nurse, patient in bed sitting in bed awake alert and oriented. Patient verbalizing needs, nurse made aware of [facility] @[id number] 03/13/19, verbalized understanding.
[2019-03-12 20:17] LABS: LYMPHOCYTES % (MANUAL) 5 % (19-48); MONOCYTES % (MANUAL) 3 % (3.4-9.0); NEUTROPHILS % (MANUAL) 92 % (40-74); PLATELET ESTIMATE MODERATELY INCREASED; RBC MORPHOLOGY COMMENT NORMAL
--- NOTE | 2019-03-12 21:29 | Consultation ---
DATE OF CONSULTATION: 03/12/2019 REASON FOR CONSULTATION: Pneumonia. HISTORY OF PRESENT ILLNESS: This patient was a very pleasant 33-year-old female. The patient comes in with 1 day onset of fever, chills, cough, shortness of breath. The patient came to the emergency room, where she was evaluated and admitted. 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 The patient is status post removal of the right eye. The patient came to emergency room, which was diagnosed with pneumonia. She is being admitted. PAST MEDICAL HISTORY: As above. PAST SURGICAL HISTORY: As above. ALLERGIES: NKA. SOCIAL HISTORY: There is no smoking, drug abuse, or alcohol abuse. FAMILY HISTORY: Otherwise, unremarkable. The patient was seen by Pulmonary, she was diagnosed with left pleural effusion, which was loculated. She was seen by Pulmonary. She was seen by Plastic Surgery. The patient had a chest tube inserted. LABORATORY DATA: Blood culture is still pending. Her white count on admission was 41,000, came down to 25, hemoglobin 7.6. Sodium 131, potassium 3.8, creatinine 0.75. She is currently on cefepime and vancomycin. PHYSICAL EXAMINATION: GENERAL: She is currently alert, oriented, and does not seem in acute distress. VITAL SIGNS: Stable, currently afebrile. HEENT: She is not icteric. NECK: Supple. CHEST: Crackles on the right. COR: S1, S2. No murmurs. ABDOMEN: Soft. IMPRESSION AND PLAN: Pneumonia with parapneumonic effusion. Agree with vancomycin and cefepime. Obtain HIV. We will continue with IV antibiotic. Await culture and sensitivity. We will follow with you. Follow vancomycin level. MD RUTHIE Aiken/CARLYN /[id number]
[2019-03-13] VITALS (9 sets, daily range): BP systolic 98–122; BP diastolic 53–85
[2019-03-13] MEDS: SOD CHL 0.45%/POT CHL 20MEQ 1,000 ML IV SCH ×2 (01:15→13:11)
[2019-03-13] MEDS: VANCOMYCIN 1GM/NS 250 ML 250 ML IV SCH ×2 (04:00→18:05)
[2019-03-13 05:26] LABS: BASOPHILS % 0.2 % (0.0-1.0); EOSINOPHILS # (AUTO) 0.1 (0.0-0.4); EOSINOPHILS % 0.2 % (0.0-6.0); HEMATOCRIT 26.7 % (34.2-44.1); HEMOGLOBIN 7.8 g/dL (12.0-16.0); LYMPHOCYTES # (AUTO) 1.3 (1.0-3.2); LYMPHOCYTES % 5.6 % (18.0-39.1); MEAN CORPUSCULAR HEMOGLOBIN 21.3 pg (28-32); MEAN CORPUSCULAR HGB CONC 29.2 g/dL (31-35); MEAN CORPUSCULAR VOLUME 72.8 fL (81-99); MONOCYTES # (AUTO) 1.1 (0.2-0.8); MONOCYTES % 4.9 % (4.4-11.3); NEUTROPHILS # (AUTO) 20.5 (2.1-6.9); NEUTROPHILS % 88.2 % (38.7-80.0); PLATELET COUNT 399 x10e3/uL (140-360); RED BLOOD COUNT 3.67 x10e6/uL (3.6-5.1); RED CELL DISTRIBUTION WIDTH 17.2 % (11.7-14.4)
[2019-03-13 05:48] LABS: ANION GAP 14.1 mmol/L (8-16); BLOOD UREA NITROGEN 12 mg/dL (7-26); BUN/CREATININE RATIO 23 (6-25); CALCIUM 9.4 mg/dL (8.4-10.2); CARBON DIOXIDE 25 mmol/L (22-29); CHLORIDE 100 mmol/L (98-107); CREATININE, SERUM 0.53 mg/dL (0.57-1.11); EST GLOMERULAR FILTRATION RATE > 60 ML/MIN (60-); GLUCOSE 88 mg/dL (74-118); POTASSIUM 3.1 mmol/L (3.5-5.1); SODIUM 136 mmol/L (136-145)
[2019-03-13 05:52] LABS: CREATINE KINASE 28 IU/L (29-168)
[2019-03-13] MEDS: CEFEPIME 1GM/NS 0.9% 50 ML 50 ML IV SCH ×3 (06:05→21:41)
--- NOTE | 2019-03-13 06:14 | Diagnostic Imaging Report ---
EXAMINATION: CHEST SINGLE (PORTABLE) COMPARISON: Chest x-ray 03/11/2019 INDICATION: Empyema, chest tube ^Empyema ^[id number] ^[id number] DISCUSSION: Frontal view of the chest obtained at 0540 hours. HEART AND MEDIASTINUM: Stable cardiomegaly LINES: Left chest tube terminates between the 6th and 7th ribs LUNGS: Left upper lobe fluid collection is less dense. Retrocardiac airspace disease is stable. No new findings in the right lung. PLEURA: No pneumothorax BONES AND SOFT TISSUES: No focal osseous lesion. The soft tissues are normal. IMPRESSION: Improved attenuation of the left upper lobe suggestive of diminishing loculated pleural effusion. Signed by: Dr. Shelia Ortiz MD on 03/13/2019 6:11 AM
[2019-03-13] MEDS: METOPROLOL TARTRATE 25 MG TAB PO SCH ×2 (09:17→20:51)
[2019-03-13] MEDS: ONDANSETRON HCL INJ 2MG/ML 2ML 2 MG/ML VIAL IV PRN (10:01)
[2019-03-13] MEDS: MORPHINE SULFATE 2 MG/ML SYR 1ML IV PRN (10:01)
[2019-03-13] MEDS ORDERED: POTASSIUM CHLORIDE 20 MEQ TAB CR PO NR ×2 (13:15→18:30)
[2019-03-13 13:26] LABS: CREATINE KINASE MB 0.2 ng/mL (0-5.0)
--- NOTE | 2019-03-13 15:22 | Progress Note ---
DATE: 03/13/2019 SUBJECTIVE: The patient has some tachycardia. She complains of some discomfort from the chest tube. PHYSICAL EXAMINATION: VITAL SIGNS: Temperature is 99.5, and the pulse is 115. CARDIAC: Reveals regular rate and rhythm with normal S1, S2. LUNGS: Auscultation of lungs shows decreased breath sounds at left base. There is no wheezing. ABDOMEN: Soft, nontender. There is no rebound or guarding. EXTREMITIES: Show no leg edema or calf tenderness. There is no cyanosis or clubbing. SKIN: Shows no rashes. NEUROLOGICAL: Shows no focal abnormalities. IMPRESSION: Pneumonia with associated empyema. PLAN: 1. Continue thoracostomy drainage. 2. Additional fluids for volume depletion and tachycardia. 3. Pain control. 4. Continue current antibiotics. 5. Repeat chest x-ray and CBC in the morning. Prince Tenorio MD [facility]/AVELL /[id number]
--- NOTE | 2019-03-13 15:57 | Progress Note ---
DATE: 03/13/2019 Medicine Progress Note SUBJECTIVE: The patient is reportedly much improved today. She still has some pain in the left shoulder. White count improved. She is afebrile. PHYSICAL EXAMINATION: VITAL SIGNS: Temperature 99.5, pulse 119, respiratory rate is 20, blood pressure is 119/73, pulse ox 95% on room air. She has a left-sided chest tube. GENERAL: Not in acute distress, alert, and oriented x3. Cooperative on examination. HEENT: Head; normocephalic, atraumatic. Eyes; pupils are equal, round, and reactive to light bilaterally. Extraocular movements are intact bilaterally. Throat; no evidence of erythema or exudates in the posterior pharynx. Has poor dentition. NECK: Supple. Good range of motion. PULMONARY: Clear to auscultation bilaterally. No wheezing. No rales. No rhonchi. No crackles appreciated. There is decreased breath sounds in the left lung field. CARDIOVASCULAR: Positive S1, S2. No murmurs, rubs, or gallops appreciated. ABDOMEN: Soft, nondistended, and nontender to palpation. Bowel sounds present. MUSCULOSKELETAL: Strength is 5/5 throughout. No evidence of any muscle deficits on examination. No weakness appreciated. NEUROLOGIC: Cranial nerves II through XII grossly intact. No evidence of any neurological deficits on exam. SKIN: Intact. Warm to touch. Good cap refill. PSYCHIATRIC: Normal affect and mood. EXTREMITIES: No edema, good range of motion throughout. LABORATORY DATA: Labs show white count is 23, hemoglobin 7.8, hematocrit 26, platelets of 399. Chemistry; sodium 136, potassium 3.1, chloride 100, bicarb 25, anion gap of 14, BUN is 12, creatinine 0.53, glucose 88, calcium 9.4. Troponins were all negative. Albumin 1.5. Vanc trough is 24.2. MICROBIOLOGY: Body fluid collection aspiration shows Streptococcus species of hemolytic blood cultures, no growth today. IMAGING STUDIES: Chest x-ray this morning shows improved aeration of the left upper lobe suggestive of diminishing loculated pleural effusion. IMPRESSION: 1. Sepsis with likely left lung status post chest tube placement with drainage. 2. Community-acquired pneumonia. 3. Leukocytosis and fever secondary to sepsis from loculated left lung, status post chest tube placement with drainage. 4. Sinus tachycardia could be from underlying pain and fever including sepsis. PLAN: At this time continue with left-sided chest tube, IV antibiotics. Pleural fluid collection. Wound culture shows Streptococcus species. Continue with IV antibiotics. ID and Pulmonary are following. She will likely need to be decorticated and likely need a thoracotomy, possibly early next week. We will defer that to CT Surgery. Put her on low-dose IV fluids. Replace her potassium. MD CIELO Small/CARLYN /[id number]
[2019-03-13] MEDS: ACETAMINOPHEN 325 MG TAB PO PRN (20:14)
[2019-03-14] VITALS (7 sets, daily range): BP systolic 113–121; BP diastolic 64–72
[2019-03-14] MEDS: VANCOMYCIN 1GM/NS 250 ML 250 ML IV SCH (05:20)
[2019-03-14 05:40] LABS: BASOPHILS # (AUTO) 0.1 (0.0-0.1); BASOPHILS % 0.3 % (0.0-1.0); EOSINOPHILS # (AUTO) 0.1 (0.0-0.4); EOSINOPHILS % 0.3 % (0.0-6.0); HEMATOCRIT 25.4 % (34.2-44.1); HEMOGLOBIN 7.6 g/dL (12.0-16.0); LYMPHOCYTES # (AUTO) 1.6 (1.0-3.2); LYMPHOCYTES % 7.1 % (18.0-39.1); MEAN CORPUSCULAR HEMOGLOBIN 21.7 pg (28-32); MEAN CORPUSCULAR HGB CONC 29.9 g/dL (31-35); MEAN CORPUSCULAR VOLUME 72.4 fL (81-99); MONOCYTES # (AUTO) 1.3 (0.2-0.8); MONOCYTES % 5.8 % (4.4-11.3); NEUTROPHILS # (AUTO) 19.7 (2.1-6.9); PLATELET COUNT 459 x10e3/uL (140-360); RED BLOOD COUNT 3.51 x10e6/uL (3.6-5.1); RED CELL DISTRIBUTION WIDTH 17.2 % (11.7-14.4)
[2019-03-14] MEDS: ACETAMINOPHEN 325 MG TAB PO PRN ×3 (05:50→23:17)
[2019-03-14] MEDS: CEFEPIME 1GM/NS 0.9% 50 ML 50 ML IV SCH (05:53)
[2019-03-14 06:01] LABS: ALANINE AMINOTRANSFERASE 10 IU/L (0-55); ALBUMIN 1.5 g/dL (3.5-5.0); ALBUMIN/GLOBULIN RATIO 0.3 (0.8-2.0); ALKALINE PHOSPHATASE 149 IU/L (40-150); ANION GAP 15.1 mmol/L (8-16); BLOOD UREA NITROGEN 5 mg/dL (7-26); BUN/CREATININE RATIO 10 (6-25); CALCIUM 9.1 mg/dL (8.4-10.2); CARBON DIOXIDE 30 mmol/L (22-29); CHLORIDE 99 mmol/L (98-107); EST GLOMERULAR FILTRATION RATE > 60 ML/MIN (60-); GLUCOSE 95 mg/dL (74-118); POTASSIUM 3.1 mmol/L (3.5-5.1); SODIUM 141 mmol/L (136-145)
--- NOTE | 2019-03-14 07:00 | NUR ---
Pt received resting in bed during walking rounds. Alert and oriented x4 with left sided chest tube. Oriented to staff and surroundings. Encouraged to press call moore if help needed. Pt verbalized understanding of teaching. Emotional support given. Call moore within reach. Will monitor
--- NOTE | 2019-03-14 07:02 | NUR ---
Report given to oncoming nurse Juhi, walking round done.
[2019-03-14] MEDS: METOPROLOL TARTRATE 25 MG TAB PO SCH ×2 (07:55→20:18)
--- NOTE | 2019-03-14 07:55 | NUR ---
All meds given as ordered. Emotional support given. Chest tube in place. Will monitor
[2019-03-14] MEDS: MORPHINE SULFATE 2 MG/ML SYR 1ML IV PRN ×2 (10:27→20:24)
[2019-03-14] MEDS: ONDANSETRON HCL INJ 2MG/ML 2ML 2 MG/ML VIAL IV PRN (10:27)
[2019-03-14] MEDS ORDERED: POTASSIUM CHLORIDE 10MEQ EA PO ONE ×3 (13:00→17:30)
[2019-03-14] MEDS ORDERED: FUROSEMIDE INJ 10 MG/ML 4 ML VIAL IV ONE (13:00)
[2019-03-14] MEDS: CEFTRIAXONE SOD 2 GM/NS 100 ML 100 ML IV SCH (13:19)
--- NOTE | 2019-03-14 14:00 | NUR ---
Pt c/o rainer. Temp 101.3. Al ([place] for Dr. Santos) paged. Will follow up
--- NOTE | 2019-03-14 15:14 | Progress Note ---
DATE: 03/14/2019 Medicine Progress Note SUBJECTIVE: The patient is doing much better today with no complaints. She still has a chest tube, but it did not show any drainage today. Her heart rate is slightly elevated as well. She did have a T-max of 100.5 last night. PHYSICAL EXAMINATION: VITAL SIGNS: Temperature is 98.6, currently T-max 100.5, pulse is 104, respiratory rate is 20, blood pressure 119/67, and pulse ox is 100% on room air. GENERAL: Not in acute distress. Alert and oriented x3. Cooperative on examination. HEENT: Head; normocephalic, atraumatic. Eyes; pupils are equal, round, and reactive to light bilaterally. Extraocular movements intact bilaterally. Throat; no evidence of erythema or exudates in the posterior pharynx. Has poor dentition. NECK: Supple. Good range of motion. PULMONARY: Left sided aeration of the lung is much improved. No rales, no crackles. CARDIOVASCULAR: Positive S1, S2. No murmurs, rubs, or gallops appreciated. ABDOMEN: Soft, nondistended, and nontender to palpation. Bowel sounds present. MUSCULOSKELETAL: Strength is 5/5 throughout. No evidence of any muscle deficits on examination. No weakness appreciated. NEUROLOGIC: Cranial nerve II through XII grossly intact. No evidence of any neurological deficits on exam. SKIN: Intact. Warm to touch. Good cap refill. PSYCHIATRIC: Normal affect and mood. EXTREMITIES: No edema. Good range of motion throughout. LABORATORY FINDINGS: Show white count 23, hemoglobin 7.6, hematocrit 25, MCV 72, platelets of 459. Chemistry; sodium 141, potassium 3.1, chloride 99, bicarb 30, anion gap of 15, BUN is 5, creatinine is 0.5, glucose 95, calcium 9.1. LFTs within normal range. Albumin is 1.5. HIV was nonreactive. MICROBIOLOGY: Pleural fluid shows Streptococcus viridans. Blood cultures, no growth to date. Chest x-ray from yesterday shows improved aeration of the left upper lobe suggestive of diminishing loculated pleural effusion. IMPRESSION: 1. Sepsis likely secondary to left lung loculated effusion, status post chest tube placement with drainage. 2. Community-acquired pneumonia. 3. Leukocytosis with fever secondary to sepsis. 4. Sinus tachycardia, likely secondary to pain, fever, and underlying sepsis. PLAN: At this time, her pleural fluid cultures consistent with Streptococcus viridans, is on IV antibiotics. ID is following. CT Surgery and Pulmonary is following as well. I ordered a chest x-ray for the morning. Her chest tube did not have any drainage today. Get a.m. labs. Otherwise, we will continue the same plan of care and monitor closely. I did replace her potassium. Stopped IV fluids due to lower extremity edema and Lasix was given 40 mg IV x1. Her hemoglobin is low today at 7.6. We will monitor closely and likely transfuse tomorrow if lower. MD CIELO Small/CARLYN /[id number]
[2019-03-14] MEDS: HYDROCODONE/APAP 5MG-325MG TAB PO PRN (16:55)
--- NOTE | 2019-03-14 18:14 | NUR ---
Temp 99.8. Blood culture done. Will endorse to oncoming shift
[2019-03-15] VITALS (7 sets, daily range): BP systolic 101–117; BP diastolic 54–75
[2019-03-15] MEDS: MORPHINE SULFATE 2 MG/ML SYR 1ML IV PRN ×3 (01:51→17:47)
[2019-03-15 05:30] LABS: BASOPHILS # (AUTO) 0.1 (0.0-0.1); BASOPHILS % 0.3 % (0.0-1.0); EOSINOPHILS # (AUTO) 0.2 (0.0-0.4); EOSINOPHILS % 0.7 % (0.0-6.0); HEMATOCRIT 23.5 % (34.2-44.1); HEMOGLOBIN 7.1 g/dL (12.0-16.0); LYMPHOCYTES % 9.8 % (18.0-39.1); MEAN CORPUSCULAR HEMOGLOBIN 21.5 pg (28-32); MEAN CORPUSCULAR HGB CONC 30.2 g/dL (31-35); MEAN CORPUSCULAR VOLUME 71.2 fL (81-99); MONOCYTES # (AUTO) 1.4 (0.2-0.8); MONOCYTES % 6.8 % (4.4-11.3); NEUTROPHILS # (AUTO) 16.3 (2.1-6.9); PLATELET COUNT 517 x10e3/uL (140-360); RED CELL DISTRIBUTION WIDTH 17.2 % (11.7-14.4)
[2019-03-15 05:51] LABS: ANION GAP 12.4 mmol/L (8-16); BLOOD UREA NITROGEN < 5 mg/dL (7-26); CALCIUM 8.7 mg/dL (8.4-10.2); CARBON DIOXIDE 35 mmol/L (22-29); CHLORIDE 97 mmol/L (98-107); CREATININE, SERUM 0.47 mg/dL (0.57-1.11); EST GLOMERULAR FILTRATION RATE > 60 ML/MIN (60-); GLUCOSE 107 mg/dL (74-118); MAGNESIUM 1.8 MG/DL (1.3-2.1); POTASSIUM 3.4 mmol/L (3.5-5.1); SODIUM 141 mmol/L (136-145)
[2019-03-15 05:57] LABS: BUN/CREATININE RATIO 11 (6-25)
[2019-03-15 07:11] LABS: LYMPHOCYTES % (MANUAL) 10 % (19-48); MONOCYTES % (MANUAL) 7 % (3.4-9.0); NEUTROPHILS % (MANUAL) 83 % (40-74); PLATELET ESTIMATE MODERATELY INCREASED
[2019-03-15 07:12] LABS: RBC MORPHOLOGY COMMENT NORMAL
--- NOTE | 2019-03-15 08:08 | Diagnostic Imaging Report ---
EXAMINATION: CHEST SINGLE (PORTABLE) INDICATION: Short of breath COMPARISON: Chest radiograph 03/13/2019; chest CT 03/11/2019 FINDINGS: AP view TUBES and LINES: Left chest tube with tip in the left upper hemithorax.. LUNGS: Opacification of the left hemithorax. PLEURA: No pneumothorax. Large left pleural effusion HEART AND MEDIASTINUM: Obscuration of left heart border. BONES AND SOFT TISSUES: No acute osseous lesion. Soft tissues are unremarkable. UPPER ABDOMEN: No free air under the diaphragm. IMPRESSION: Persistent near complete opacification of the left hemithorax, due to a large left pleural effusion, and partial left lung atelectasis.. Signed by: Vish Choi DO on 03/15/2019 8:05 AM
[2019-03-15] MEDS: ONDANSETRON HCL INJ 2MG/ML 2ML 2 MG/ML VIAL IV PRN ×2 (08:28→17:47)
[2019-03-15] MEDS: METOPROLOL TARTRATE 25 MG TAB PO SCH ×2 (09:11→21:00)
[2019-03-15] MEDS ORDERED: POTASSIUM CHLORIDE 20 MEQ TAB CR PO ONE (13:15)
[2019-03-15] MEDS: CEFTRIAXONE SOD 2 GM/NS 100 ML 100 ML IV SCH (13:41)
--- NOTE | 2019-03-15 16:50 | Progress Note ---
DATE: 03/15/2019 SUBJECTIVE: The patient has less fever. She has minimal chest tube drainage, but still has a leukocytosis. PHYSICAL EXAMINATION: VITAL SIGNS: The patient has some mild tachycardia of 100 to 110. Cardiac: Reveals regular rate and rhythm with normal S1 and S2. LUNGS: Auscultation of lungs shows decreased breath sounds at the left base. ABDOMEN: Soft and nontender. There is no rebound or guarding. IMPRESSION: Empyema. PLAN: 1. Continue IV antibiotics. 2. Discuss need for decortication with Thoracic Surgery. Prince Tenorio MD [facility]/MODL /[id number]
[2019-03-15] MEDS: ACETAMINOPHEN 325 MG TAB PO PRN (17:02)
--- NOTE | 2019-03-15 18:31 | Diagnostic Imaging Report ---
EXAMINATION: CHEST SINGLE (PORTABLE) INDICATION: ^CHEST TUBE COMPARISON: Chest radiograph 2018 at 03/13/2019 FINDINGS: AP view TUBES and LINES: Stable left-sided chest tube with intrapleural cycle. LUNGS: Persistent near complete opacification of the left hemithorax due to a combination of pleural effusion and atelectasis with minimal improved aeration of the left lower lobe. The right lung is well expanded and clear. PLEURA: No pleural effusion or pneumothorax. HEART AND MEDIASTINUM: The cardiomediastinal silhouette is unremarkable.. BONES AND SOFT TISSUES: No acute osseous lesion. Soft tissues are unremarkable. UPPER ABDOMEN: No free air under the diaphragm. IMPRESSION: Minimal improved aeration of the left lower lobe. Signed by: Dr. Radha Zapien M.D. on 03/15/2019 6:28 PM
--- NOTE | 2019-03-15 18:40 | NUR ---
pt c/o chest pain, stated she thought her chest tube may have moved. reported to MD, stat cxr done. no changes. pt was medicated and appears more calm, pt states discomfort is more tolerable
[2019-03-15] MEDS: KETOROLAC TROMETHAMINE 30 MG/ML VIAL IV PRN (18:50)
--- NOTE | 2019-03-15 19:45 | NUR ---
dr lai and dr phelps aware of ct results
--- NOTE | 2019-03-15 19:49 | Diagnostic Imaging Report ---
EXAM: CT Chest WITHOUT contrast 03/15/2019 6:47 PM INDICATION: ^chest tube ^[id number] ^1915 COMPARISON: CT chest 03/11/2019 and multiple chest radiographs with the most recent from 03/15/2019 TECHNIQUE: Chest was scanned utilizing a multidetector helical scanner from the lung apex through the level of the adrenal glands without administration of IV contrast. Absence of intravenous contrast decreases sensitivity for detection of lymphadenopathy and vascular pathology. Coronal and sagittal reformations were obtained. Routine protocol was performed. IV CONTRAST: None COMPLICATIONS: None RADIATION DOSE: Total DLP: 432.7 mGy*cm Estimated effective dose: (DLP x 0.015 x size factor) mSv CTDIvol has been reviewed. It is below the limits set by the Radiation Protocol Committee (RPC). FINDINGS: LINES/ TUBES: Left lower thoracostomy tube entering between the fifth and sixth lateral ribs. The chest tube follow the course of the major fissure and highly suggestive of fissural location. There is a small amount of fluid within the fissure with associated few foci of air. LUNGS AND AIRWAYS: Near collapse of the left lung with mild aeration of the left upper and lower lobes. The aerated areas of lung demonstrates multiple 2-3 mm nodules along a mildly thickened inter and intralobular septa. The right lung is well expanded and clear. Airways are normal. PLEURA: Large multiloculated pleural effusion measuring 14 Hounsfield units with the largest pocket in the left apex, measuring 7.4 cm in height x 7.3 cm in transverse diameter. The amount of pleural effusion is unchanged when compared to 03/11/2019. There is mild thickening and hyperdensity of the surrounding pleura. HEART AND MEDIASTINUM: The thyroid gland is normal. No mediastinal, hilar or axillary lymphadenopathy. The heart is normal in size. There is no pericardial effusion. The thoracic aorta and pulmonary arteries are unremarkable. UPPER ABDOMEN: Unremarkable. BONES: The visualized bony thorax is within normal limits. SOFT TISSUES: Unremarkable. IMPRESSION: Complex partially loculated large left pleural effusion with near collapse of the left lung has not significantly changed since 03/11/2019. Left thoracostomy tube appears to be in an intrafissural location. There are few foci of free air along the major fissure. Recommend chest tube revision. Diffuse nodular septal thickening of the aerated areas of the lung may relate to infection or malignant lymphangitic spread. These findings were communicated to Mrs Ivan, patient's nurse, on 03/15/2019 at 7:45 PM. Signed by: Dr. Radha Zapien M.D. on 03/15/2019 7:46 PM
--- NOTE | 2019-03-15 23:37 | Progress Note ---
DATE: 03/15/2019 PRINCIPAL PROBLEM: Left loculated effusion and possible abscess. SUBJECTIVE: Sitting up in bed and breathing comfortably. OBJECTIVE: VITAL SIGNS: Blood pressure 120/75. Pulse ox 95% on room air. Chest tube in place. Temperature 99. Pulse 100. HEENT: Extraocular motion full. Mucous membranes moist. NECK: Supple. Nontender. CARDIAC: Shows a regular rate and rhythm. No rubs or murmur. LUNGS: Decreased breath sounds and rhonchi on the left. On the right, breath sounds are full and clear. Chest tube is draining cloudy fluid in limited amounts. There is no air leak. ABDOMEN: Globally benign. Good bowel sounds. BACK: No CVA tenderness. No muscular spasm. EXTREMITIES: No cyanosis, clubbing, or edema. LABORATORIES: Chest x-ray shows persistent opacification of the left lung with the upper lobe being particularly affected. Chest tube is in place. White count 25. Hemoglobin 7.8, hematocrit 26. IMPRESSION: Persistent left loculated effusion with possible underlying pneumonia. The patient is not toxic, but white count is persistently elevated. Repeat CT scan of the chest may be beneficial. MD LUDIN Faith/CARLYN /[id number]
[2019-03-16] VITALS (8 sets, daily range): BP systolic 90–125; BP diastolic 54–72
--- NOTE | 2019-03-16 04:23 | Progress Note ---
DATE: 03/15/2019 Medicine Progress Note SUBJECTIVE: The patient is doing well, but still had a fever today of 101.5. She states she is not eating that much, but her pain is better resolved according to her. PHYSICAL EXAMINATION: VITAL SIGNS: Her temperature currently is 98.9, T-max was 101.5 at 2317 last night. Pulse is 108, respiratory rate is 18, blood pressure 109/75, pulse ox 100% on 2 L nasal cannula. Still has a left-sided chest tube. GENERAL: Not in acute distress. Alert and oriented x3. Cooperative on examination. HEENT: Head; normocephalic, atraumatic. Eyes; pupils are equal, round, and reactive to light bilaterally. Extraocular movements are intact bilaterally. Throat; no evidence of erythema or exudates in the posterior pharynx. Has poor dentition. NECK: Supple. Good range of motion. PULMONARY: Clear to auscultation bilaterally. No wheezing. No rales. No rhonchi. No crackles appreciated. Decreased breath sounds on the left lung field. CARDIOVASCULAR: Positive S1, S2. No murmurs, rubs, or gallops appreciated. ABDOMEN: Soft, nondistended, and nontender to palpation. Bowel sounds present. MUSCULOSKELETAL: Strength is 5/5 throughout. No evidence of any muscle deficits on examination. No weakness appreciated. NEUROLOGIC: Cranial nerve II through XII grossly intact. No evidence of any neurological deficits on exam. SKIN: Intact. Warm to touch. Good cap refill. PSYCHIATRIC: Normal affect and mood. EXTREMITIES: No edema. Good range of motion throughout. LABORATORY DATA: Lab findings show white count 20, hemoglobin 7.1, hematocrit 23.5, platelets of 517. Chemistry; sodium 141, potassium 3.4, chloride 97, bicarb 35, anion gap of 12, BUN is less than 5. Her creatinine is 0.47, albumin 1.5. MICROBIOLOGY: Thoracentesis culture shows Streptococcus viridans. Repeat blood cultures are pending. IMAGING STUDIES: Chest x-ray from this morning shows persistent near-complete opacification of the left hemothorax due to a large left pleural effusion and partial left lung atelectasis. IMPRESSION: 1. Sepsis secondary to loculated left lung effusion with the chest tube placement. 2. Community-acquired pneumonia. 3. Leukocytosis with fever secondary to sepsis, who has a fever of 101.5, T-max from last night. 4. Sinus tachycardia secondary to pain, fever and underlying sepsis. 5. Hypokalemia. PLAN: Pleural fluid cultures noted. Repeat blood cultures collected due to fever from last night. Antibiotics managed per ID. In terms of her chest tube, her chest x-ray still shows loculations in the left lung. We will need to have CT surgery come back, re-evaluate her as she likely will need a decortication. At this time, we will replace electrolytes. Get a.m. labs. Get chest x-ray in the morning and follow other acquisition consultant's recommendations. We will have to have and see if the nurse can call the surgeon. I will also reach out to him as well. MD CIELO Small/MODL /[id number]
[2019-03-16 05:13] LABS: BASOPHILS # (AUTO) 0.1 (0.0-0.1); BASOPHILS % 0.3 % (0.0-1.0); EOSINOPHILS # (AUTO) 0.2 (0.0-0.4); EOSINOPHILS % 0.8 % (0.0-6.0); HEMOGLOBIN 7.6 g/dL (12.0-16.0); LYMPHOCYTES # (AUTO) 1.6 (1.0-3.2); LYMPHOCYTES % 8.6 % (18.0-39.1); MEAN CORPUSCULAR HEMOGLOBIN 21.1 pg (28-32); MEAN CORPUSCULAR HGB CONC 29.2 g/dL (31-35); MEAN CORPUSCULAR VOLUME 72.2 fL (81-99); MONOCYTES # (AUTO) 1.2 (0.2-0.8); MONOCYTES % 6.4 % (4.4-11.3); NEUTROPHILS # (AUTO) 15.3 (2.1-6.9); NEUTROPHILS % 80.1 % (38.7-80.0); PLATELET COUNT 615 x10e3/uL (140-360); RED CELL DISTRIBUTION WIDTH 17.3 % (11.7-14.4)
[2019-03-16 05:33] LABS: ANION GAP 14.9 mmol/L (8-16); BLOOD UREA NITROGEN 8 mg/dL (7-26); BUN/CREATININE RATIO 16 (6-25); CALCIUM 9.5 mg/dL (8.4-10.2); CARBON DIOXIDE 31 mmol/L (22-29); CHLORIDE 95 mmol/L (98-107); CREATININE, SERUM 0.49 mg/dL (0.57-1.11); EST GLOMERULAR FILTRATION RATE > 60 ML/MIN (60-); GLUCOSE 97 mg/dL (74-118); POTASSIUM 3.9 mmol/L (3.5-5.1); SODIUM 137 mmol/L (136-145)
[2019-03-16] MEDS: MORPHINE SULFATE 2 MG/ML SYR 1ML IV PRN ×3 (06:44→20:23)
[2019-03-16 06:53] LABS: LYMPHOCYTES % (MANUAL) 10 % (19-48); MONOCYTES % (MANUAL) 6 % (3.4-9.0); NEUTROPHILS % (MANUAL) 84 % (40-74)
[2019-03-16 06:54] LABS: PLATELET ESTIMATE MARKEDLY INCREASED; RBC MORPHOLOGY COMMENT NORMAL
--- NOTE | 2019-03-16 07:36 | Diagnostic Imaging Report ---
EXAMINATION: CHEST SINGLE (PORTABLE) INDICATION: SOB. COMPARISON: Chest radiograph 03/15/19, CT Chest 03/15/19 FINDINGS: TUBES and LINES: Stable left-sided chest tube. LUNGS: Persistent near complete opacification of the left hemithorax due to a combination of pleural effusion and atelectasis. The right lung is well expanded and clear. There is no evidence of pneumonia or pulmonary edema. PLEURA: No pleural effusion or pneumothorax. HEART AND MEDIASTINUM: The cardiomediastinal silhouette is mildly enlarged. BONES AND SOFT TISSUES: No acute osseous abnormality. UPPER ABDOMEN: No free air under the diaphragm. IMPRESSION: Unchanged appearance of large left pleural effusion with associated near collapse of the left lung. Signed by: Dr. Chanelle Sullivan MD on 03/16/2019 7:33 AM
[2019-03-16] MEDS: METOPROLOL TARTRATE 25 MG TAB PO SCH ×2 (09:32→20:23)
[2019-03-16] MEDS: CEFTRIAXONE SOD 2 GM/NS 100 ML 100 ML IV SCH (12:19)
[2019-03-16] MEDS: ONDANSETRON HCL INJ 2MG/ML 2ML 2 MG/ML VIAL IV PRN (12:20)
--- NOTE | 2019-03-16 12:20 | Progress Note ---
DATE: 03/16/2019 Medicine Progress Note SUBJECTIVE: The patient is doing well today. She does have some occasional pain around the chest tube. The patient is tolerating diet well with no complaints. PHYSICAL EXAMINATION: VITAL SIGNS: Temperature 98.9, T-max 101, pulse 115, respiratory rate is 22, blood pressure is 125/72, pulse ox 98% on room air. GENERAL: Not in acute distress. Alert and oriented x3. Cooperative on examination. HEENT: Head; normocephalic, atraumatic. Eyes; pupils are equal, round, and reactive to light bilaterally. Extraocular movements are intact bilaterally. Throat; no evidence of erythema or exudates in the posterior pharynx. Has poor dentition. NECK: Supple. Good range of motion. PULMONARY: Clear to auscultation bilaterally. No wheezing. No rales. No rhonchi. No crackles appreciated. Decreased breath sounds in the left lung with mild crackles appreciated. CARDIOVASCULAR: Positive S1, S2. No murmurs, rubs, or gallops appreciated. ABDOMEN: Soft, nondistended, and nontender to palpation. Bowel sounds present. MUSCULOSKELETAL: Strength is 5/5 throughout. No evidence of any muscle deficits on examination. No weakness appreciated. NEUROLOGIC: Cranial nerve II through XII grossly intact. No evidence of any neurological deficits on exam. SKIN: Intact. Warm to touch. Good cap refill. PSYCHIATRIC: Normal affect and mood. EXTREMITIES: No edema. Good range of motion throughout. LABORATORY DATA: Lab findings show white count 19, hemoglobin 7.6, hematocrit 26, platelets of 615. Her chemistries reviewed and stable. IMPRESSION: 1. Sepsis secondary to likely left lung effusion with chest tube placement. 2. Community-acquired pneumonia. 3. Leukocytosis with fever secondary to sepsis, T-max 101 yesterday. 4. Sinus tachycardia secondary to sepsis, fever and pain. 5. Hypokalemia, replaced. PLAN: At this time, I did discuss the case with ID, Pulmonary and CV surgery and they are hopefully scheduling surgery hopefully sometime this week by CV surgery. CT chest results reviewed. I also discussed this with the consultants. There are no changes at this time. No need to change the chest tube. Hopefully, this lady will be scheduled sometime this week by CV surgery. I did discuss this case with them as well thoroughly. She is on IV antibiotics. Get a.m. labs. I discussed the case with the nursing staff as well. MD CIELO Small/CARLYN /[id number]
[2019-03-16] MEDS: KETOROLAC TROMETHAMINE 30 MG/ML VIAL IV PRN (18:54)
[2019-03-16] MEDS: ACETAMINOPHEN 325 MG TAB PO PRN (20:24)
[2019-03-17] VITALS: BP 100/52
[2019-03-17 04:00] VITALS: BP 93/54
[2019-03-17] MEDS: MORPHINE SULFATE 2 MG/ML SYR 1ML IV PRN ×4 (04:50→23:48)
[2019-03-17 05:44] LABS: INR 1.22
[2019-03-17 05:45] LABS: PARTIAL THROMBOPLASTIN TIME 61.6 seconds (23.8-35.5)
[2019-03-17 05:49] LABS: ANION GAP 14.6 mmol/L (8-16); BLOOD UREA NITROGEN 9 mg/dL (7-26); BUN/CREATININE RATIO 18 (6-25); CALCIUM 9.7 mg/dL (8.4-10.2); CARBON DIOXIDE 30 mmol/L (22-29); CHLORIDE 97 mmol/L (98-107); CREATININE, SERUM 0.51 mg/dL (0.57-1.11); EST GLOMERULAR FILTRATION RATE > 60 ML/MIN (60-); GLUCOSE 93 mg/dL (74-118); POTASSIUM 3.6 mmol/L (3.5-5.1); SODIUM 138 mmol/L (136-145)
[2019-03-17 06:40] LABS: LYMPHOCYTES % (MANUAL) 8 % (19-48); MONOCYTES % (MANUAL) 4 % (3.4-9.0); NEUTROPHILS % (MANUAL) 88 % (40-74)
[2019-03-17 06:41] LABS: PLATELET ESTIMATE MODERATELY INCREASED; RBC MORPHOLOGY COMMENT NORMAL
[2019-03-17 07:33] LABS: BASOPHILS # (AUTO) 0.1 (0.0-0.1); BASOPHILS % 0.5 % (0.0-1.0); EOSINOPHILS # (AUTO) 0.2 (0.0-0.4); HEMATOCRIT 25.7 % (34.2-44.1); HEMOGLOBIN 7.6 g/dL (12.0-16.0); LYMPHOCYTES # (AUTO) 1.7 (1.0-3.2); LYMPHOCYTES % 8.6 % (18.0-39.1); MEAN CORPUSCULAR HEMOGLOBIN 21.3 pg (28-32); MEAN CORPUSCULAR HGB CONC 29.6 g/dL (31-35); MONOCYTES # (AUTO) 1.1 (0.2-0.8); MONOCYTES % 5.4 % (4.4-11.3); NEUTROPHILS # (AUTO) 15.9 (2.1-6.9); NEUTROPHILS % 80.6 % (38.7-80.0); PLATELET COUNT 711 x10e3/uL (140-360); RED BLOOD COUNT 3.57 x10e6/uL (3.6-5.1); RED CELL DISTRIBUTION WIDTH 17.4 % (11.7-14.4)
[2019-03-17 07:41] VITALS: BP 114/63
[2019-03-17 08:00] VITALS: BP 114/63
[2019-03-17] MEDS: METOPROLOL TARTRATE 25 MG TAB PO SCH ×2 (09:41→21:18)
[2019-03-17] MEDS ORDERED: HEPARIN SOD/SOD CHLORIDE 1,000 ML ONE (10:04)
[2019-03-17] MEDS ORDERED: BUPIVACAINE HCL 0.5% INJ 30 ML VIAL INJ ONE (10:52)
[2019-03-17] MEDS ORDERED: BACITRACIN 50,000 UNIT VIAL ONE (10:52)
[2019-03-17] MEDS ORDERED: CEFTRIAXONE SOD 1 GM/NS 50 ML 100 ML IV ONE (12:35)
[2019-03-17 12:41] LABS: INR 1.23; PROTHROMBIN TIME 16.1 seconds (11.9-14.5)
[2019-03-17 12:42] LABS: PARTIAL THROMBOPLASTIN TIME 38.1 seconds (23.8-35.5)
[2019-03-17] MEDS: CEFTRIAXONE SOD 2 GM/NS 100 ML 100 ML IV SCH (13:00)
[2019-03-17] MEDS: ONDANSETRON HCL INJ 2MG/ML 2ML 2 MG/ML VIAL IV PRN (13:43)
--- NOTE | 2019-03-17 14:16 | Progress Note ---
DATE: 03/17/2019 Medicine Progress Note SUBJECTIVE: The patient went to the OR. I came to evaluate the patient. The patient was already in the operating room getting her decortication by CT Surgery. OBJECTIVE: VITAL SIGNS: Temperature 99, pulse 108, respiratory rate is 22, blood pressure 114/63, pulse ox 98% on 2 L nasal cannula. The patient was in the operating room when I came to evaluate the patient. I spoke with the nurse about the plan of care on the case. She is currently doing well and she is in the OR. LABORATORY DATA: White count 19.7, hemoglobin 7.6, hematocrit 25, and platelets of 711. Chemistries; sodium 138, potassium 3.6, chloride 97, bicarb 30, anion gap of 14, BUN 9, creatinine 0.5, calcium 9.7. Coagulation; PT 16, INR 1.2, PTT 61. Repeat blood culture shows no growth to date. IMPRESSION: 1. Sepsis secondary to left lung effusion with chest tube placement. 2. Community-acquired pneumonia. 3. Leukocytosis secondary to underlying pneumonia. 4. Sinus tachycardia secondary to sepsis, fever, and pain. 5. Electrolyte abnormalities. PLAN: At this time she is currently in the OR when I came to evaluate her. We are going to continue with IV antibiotics. ID, Pulmonary, and CV Surgery are following. I discussed the plan of care with the nursing staff. She will likely need a repeat CT either during this hospital stay or as an outpatient after her infection has been cleared. We will discuss this with the patient when she is back from the OR. Otherwise, we will continue with same plan of care. Monitor closely. MD CIELO Small/CARLYN /[id number]
[2019-03-17] MEDS: ACETAMINOPHEN 325 MG TAB PO PRN ×2 (15:27→21:14)
[2019-03-17 15:40] VITALS: BP 97/71
[2019-03-17] MEDS ORDERED: SODIUM CHLORIDE 0.9% 250ML 250 ML ONE ×2 (17:12→22:00)
--- NOTE | 2019-03-17 19:59 | Progress Note ---
DATE: 03/17/2019 PRINCIPAL PROBLEM: Left loculated effusion and possible abscess. SUBJECTIVE: Sitting up in bed and breathing comfortably. Chest tube in place without any leak. OBJECTIVE: VITAL SIGNS: Blood pressure 125/70, pulse ox 96% on room air. Chest tube in place as noted. Temperature 99. Pulse is 90. HEENT: Extraocular motion full. Mucous membranes moist. NECK: Supple, nontender. CARDIAC: Regular rate and rhythm. No rub or murmur. LUNGS: Decreased breath sounds and rhonchi on the left. On the right, breath sounds are full clear and unchanged. Chest tube is draining limited amounts of cloudy fluid. There is no air leak. ABDOMEN: Globoid. Benign. Good bowel sounds. BACK: No CVA tenderness. No muscular spasm. EXTREMITIES: No cyanosis, clubbing, or edema. LABORATORY DATA: White count 19.7, hemoglobin 7.6, hematocrit 25.7, and platelet count is 711,000. INR is 1.23 with PT 16.1 and PTT of 38.1. Sodium 138, potassium 3.6, BUN of 9, creatinine 0.51. IMPRESSION: The patient was scheduled for operation today (thoracoscopy/thoracotomy with drainage of pleural effusion), but INR and PT are somewhat elevated and hemoglobin is decreased. I have discussed this with doctors, Dr. Metz, Dr. King, and Dr. Tenorio. Plan will be for hematologic evaluation, delay of surgery, possible transfusion, and then subsequent drainage as indicated. MD LUDIN Faith/MODL /[id number]
[2019-03-17 20:00] VITALS: BP 116/65
[2019-03-18] VITALS (8 sets, daily range): BP systolic 95–109; BP diastolic 54–75
[2019-03-18] MEDS: HYDROCODONE/APAP 5MG-325MG TAB PO PRN ×3 (03:24→16:45)
[2019-03-18 05:33] LABS: BASOPHILS # (AUTO) 0.1 (0.0-0.1); BASOPHILS % 0.4 % (0.0-1.0); EOSINOPHILS # (AUTO) 0.2 (0.0-0.4); HEMATOCRIT 27.3 % (34.2-44.1); HEMOGLOBIN 8.2 g/dL (12.0-16.0); LYMPHOCYTES # (AUTO) 1.7 (1.0-3.2); LYMPHOCYTES % 8.7 % (18.0-39.1); MEAN CORPUSCULAR HEMOGLOBIN 22.2 pg (28-32); MEAN CORPUSCULAR VOLUME 73.8 fL (81-99); MONOCYTES # (AUTO) 1.1 (0.2-0.8); MONOCYTES % 5.6 % (4.4-11.3); NEUTROPHILS # (AUTO) 15.9 (2.1-6.9); PLATELET COUNT 655 x10e3/uL (140-360); RED CELL DISTRIBUTION WIDTH 19.1 % (11.7-14.4)
[2019-03-18 05:46] LABS: INR 1.2; PROTHROMBIN TIME 15.8 seconds (11.9-14.5)
[2019-03-18 05:47] LABS: PARTIAL THROMBOPLASTIN TIME 43.1 seconds (23.8-35.5)
[2019-03-18 06:13] LABS: BLOOD UREA NITROGEN 8 mg/dL (7-26); BUN/CREATININE RATIO 15 (6-25); CALCIUM 9.5 mg/dL (8.4-10.2); CARBON DIOXIDE 29 mmol/L (22-29); CHLORIDE 97 mmol/L (98-107); CREATININE, SERUM 0.53 mg/dL (0.57-1.11); EST GLOMERULAR FILTRATION RATE > 60 ML/MIN (60-); GLUCOSE 95 mg/dL (74-118); SODIUM 136 mmol/L (136-145)
[2019-03-18 07:41] LABS: EOSINOPHILS % (MANUAL) 1 % (0-7); LYMPHOCYTES % (MANUAL) 9 % (19-48); MONOCYTES % (MANUAL) 7 % (3.4-9.0); NEUTROPHILS % (MANUAL) 83 % (40-74); PLATELET ESTIMATE MARKEDLY INCREASED; RBC MORPHOLOGY COMMENT NORMAL
--- NOTE | 2019-03-18 09:30 | NUR ---
Meds given as ordered. Emotional support given. Will monitor
[2019-03-18] MEDS: METOPROLOL TARTRATE 25 MG TAB PO SCH ×2 (09:33→20:39)
[2019-03-18] MEDS: CEFTRIAXONE SOD 2 GM/NS 100 ML 100 ML IV SCH (12:30)
--- NOTE | 2019-03-18 13:08 | Progress Note ---
DATE: 03/18/2019 Medicine Progress Note SUBJECTIVE: The patient is doing well today with no other issues. Surgery was canceled yesterday due to elevated coagulations and also underlying anemia. FFP and blood products were given last night. Coags still show elevation. We will get Hematology consultation. PHYSICAL EXAMINATION: VITAL SIGNS: Temperature is 98.1, her T-max was 100.7 record yesterday, pulse is 104, respiratory rate is 20, blood pressure is 101/75, pulse ox is 100% on room air. GENERAL: Not in acute distress. Alert and oriented x3. Cooperative on examination. HEENT: Head; normocephalic, atraumatic. Eyes; pupils are equal, round, and reactive to light bilaterally. Extraocular movements are intact bilaterally. Throat; no evidence of erythema or exudates in the posterior pharynx. Has poor dentition. NECK: Supple. Good range of motion. PULMONARY: Clear to auscultation bilaterally. No wheezing. No rales. No rhonchi. No crackles appreciated. There are decreased breath sounds in the left lung field. Mild crackles appreciated. CARDIOVASCULAR: Positive S1, S2. No murmurs, rubs, or gallops appreciated. ABDOMEN: Soft, nondistended, and nontender to palpation. Bowel sounds present. MUSCULOSKELETAL: Strength is 5/5 throughout. No evidence of any muscle deficits on examination. No weakness appreciated. NEUROLOGIC: Cranial nerve II through XII grossly intact. No evidence of any neurological deficits on exam. SKIN: Intact. Warm to touch. Good cap refill. PSYCHIATRIC: Normal affect and mood. EXTREMITIES: No edema. Good range of motion throughout. LABORATORY DATA: Labs show white count is 19.6, hemoglobin is 8.2, hematocrit 27, platelets of 655, MCV 73. Coagulation; PT 15.8, INR 1.2, PTT is 43. Chemistry; sodium 136, potassium 4, chloride 97, bicarbonate 29, anion gap of 14, BUN is 8, creatinine is 0.53, calcium is 9.5, glucose 95. Repeat blood culture shows no growth today. IMPRESSION: 1. Sepsis secondary to the left lung effusion with chest tube placement. 2. Community-acquired pneumonia. 3. Leukocytosis, secondary to underlying pneumonia. 4. Sinus tachycardia due to sepsis, fever, and pain. 5. Electrolyte abnormalities. 6. Coagulopathy. 7. Anemia. PLAN: At this time, she was scheduled for surgery yesterday by CV Surgery, but the patient's Coags, PTT, and PT are elevated and she was anemic. At this time, anesthesiology decided to cancel the surgery. I did discuss this with CV Surgery as well as Pulmonary. At this time, I did give a unit of FFP and some blood products, still shows elevated PT, PTT, but her hemoglobin is much improved to 8.2. At this time, we will repeat labs in the morning. I did get Hematology consultation. Her surgery will likely recur sometime early next week when the surgeon is available. We will otherwise continue with same plan of care. Get a.m. labs. Continue with aggressive IV antibiotic therapy and follow up with consultants, CV Surgery, Hematology, Pulmonary and ID. Discussed plan of care with nursing staff and patient. MD CIELO Small/CARLYN /[id number]
--- NOTE | 2019-03-18 13:17 | NUR ---
Nutrition LOS Note RD Recommendation(s) for Physician / Nutrition Prescription: continue with diet as prescribed Plan of Care: Patient has been screened and assessed for nutrition risk. At this time, the patient does not pose any nutrition risk. No further nutrition intervention is warranted at this time. Will re-evaluate if consulted by medical staff. Nutrition reason for involvement: LOS Primary Dx: Sepsis secondary to the left lung effusion with chest tube placement. PMH: retinoblastoma Ht: 64in Wt: 129lb BMI: 22.2kg/m2 IBW: 120lb +/- 10% RD Assessment: (03/18) 33yo F, who was admitted for pleural effusion. Visited pt in the room per LOS. Pt reported good appetite. No complains of nausea or vomiting. Pt denied any chewing or swallowing difficulty. Pt has had some intentional weight loss through exercise in the last 2 years. Current diet is appropriate and adequate. Malnutrition Evaluation (03/18/2019) The patient does not meet criteria for a specified degree of malnutrition at this time. Will re-evaluate at follow-up as appropriate. Diet Education Needs Assessment: Diet education not indicated. Nutrition Care Level: Low Signed by Kate Jorge, MS, RD, LD
--- NOTE | 2019-03-18 14:30 | NUR ---
Called Dr. Duran's answering service to inquire if the consult was received. Consult confirmed. Will follow up
[2019-03-18] MEDS: MELATONIN 5 MG TABLET PO PRN (20:39)
[2019-03-18] MEDS: ACETAMINOPHEN 325 MG TAB PO PRN (20:40)
[2019-03-18] MEDS: MORPHINE SULFATE 2 MG/ML SYR 1ML IV PRN (23:05)
--- NOTE | 2019-03-18 23:05 | NUR ---
patient was sitting up crying complained of pain again. called and spoke with dr Metz, the MD ordered to renew the Radom and Morphine orders.
[2019-03-19] VITALS (7 sets, daily range): BP systolic 104–109; BP diastolic 55–67
[2019-03-19] MEDS: HYDROCODONE/APAP 5MG-325MG TAB PO PRN ×3 (04:10→22:15)
[2019-03-19 05:28] LABS: BASOPHILS # (AUTO) 0.1 (0.0-0.1); BASOPHILS % 0.3 % (0.0-1.0); EOSINOPHILS # (AUTO) 0.2 (0.0-0.4); EOSINOPHILS % 0.9 % (0.0-6.0); HEMATOCRIT 28.5 % (34.2-44.1); HEMOGLOBIN 8.5 g/dL (12.0-16.0); LYMPHOCYTES # (AUTO) 1.5 (1.0-3.2); LYMPHOCYTES % 7.9 % (18.0-39.1); MEAN CORPUSCULAR HGB CONC 29.8 g/dL (31-35); MEAN CORPUSCULAR VOLUME 73.8 fL (81-99); MONOCYTES % 5.5 % (4.4-11.3); NEUTROPHILS # (AUTO) 15.7 (2.1-6.9); NEUTROPHILS % 82.5 % (38.7-80.0); PLATELET COUNT 672 x10e3/uL (140-360); RED BLOOD COUNT 3.86 x10e6/uL (3.6-5.1)
[2019-03-19 05:39] LABS: INR 1.22
[2019-03-19 05:40] LABS: PARTIAL THROMBOPLASTIN TIME 58.1 seconds (23.8-35.5)
[2019-03-19 05:57] LABS: ANION GAP 14.5 mmol/L (8-16); BLOOD UREA NITROGEN 8 mg/dL (7-26); BUN/CREATININE RATIO 15 (6-25); CALCIUM 9.7 mg/dL (8.4-10.2); CARBON DIOXIDE 31 mmol/L (22-29); CHLORIDE 96 mmol/L (98-107); CREATININE, SERUM 0.52 mg/dL (0.57-1.11); EST GLOMERULAR FILTRATION RATE > 60 ML/MIN (60-); GLUCOSE 104 mg/dL (74-118); POTASSIUM 3.5 mmol/L (3.5-5.1); SODIUM 138 mmol/L (136-145)
--- NOTE | 2019-03-19 07:00 | NUR ---
Pt received resting in bed. Walking rounds done with outgoing nurse. Will monitor
[2019-03-19 08:01] LABS: EOSINOPHILS % (MANUAL) 2 % (0-7); LYMPHOCYTES % (MANUAL) 24 % (19-48); MONOCYTES % (MANUAL) 4 % (3.4-9.0); NEUTROPHILS % (MANUAL) 70 % (40-74); PLATELET ESTIMATE MODERATELY INCREASED; PLATELET MORPHOLOGY COMMENT NORMAL; RBC MORPHOLOGY COMMENT NORMAL
[2019-03-19] MEDS: MORPHINE SULFATE 2 MG/ML SYR 1ML IV PRN ×2 (08:34→19:23)
[2019-03-19] MEDS: ONDANSETRON HCL INJ 2MG/ML 2ML 2 MG/ML VIAL IV PRN (08:34)
[2019-03-19] MEDS: METOPROLOL TARTRATE 25 MG TAB PO SCH ×2 (08:35→20:27)
--- NOTE | 2019-03-19 08:35 | NUR ---
Pt given pain meds as requested. Emotional support given. Call moore within reach. Will monitor
[2019-03-19] MEDS: CEFTRIAXONE SOD 2 GM/NS 100 ML 100 ML IV SCH (12:50)
--- NOTE | 2019-03-19 15:11 | NUR ---
Dr. Duran is here to see assess pt. Will follow up
[2019-03-19 17:14] LABS: RETICULOCYTE % 1.2 % (0.8-2.2)
[2019-03-19 17:52] LABS: FERRITIN 222.46 ng/mL (4.63-204.00)
--- NOTE | 2019-03-19 17:57 | NUR ---
Factor 5,7,9,[address] Duran[address] Unable to place the orders in computer. Downtime form filled out, and handed to farm labor contractor. Will endorse to next shift
[2019-03-19 18:03] LABS: FOLATE 14.5 ng/mL (7.0-15.4)
--- NOTE | 2019-03-19 21:31 | Consultation ---
DATE OF CONSULTATION: 03/19/2019 REQUESTING PHYSICIAN: Indiana Metz MD CONSULTING PHYSICIAN: Bree Duran MD, Hematology/Oncology Service. REASON FOR CONSULTATION: Evaluation and management of patient with anemia and elevated PTT. HISTORY OF PRESENTING ILLNESS: Ms. Brito is a 33-year-old young female with no significant past medical history, presented to the Emergency Department on March 11, 2019 with left-sided chest pain. She underwent a CT scan of the chest revealing left-sided pleural effusion. She was admitted to inpatient floor. She underwent thoracocentesis without much return off fluid. It was felt that pleural effusion was loculated. The patient was seen and evaluated by Cardiothoracic Surgery and planning to have decortication. Meanwhile, she was started on antibiotic for sepsis and community-acquired pneumonia as the patient had leukocytosis and tachycardia. Of note, she did have chest tube placement on March 11, 2019. Her surgery was canceled due to the elevated PTT. Her laboratory workup also revealed anemia. Subsequently, Hematology-Oncology has been consulted to assist with the management. Presently, the patient is lying comfortably, not in acute distress breathing normally. She denies any history of hematologic disorder. PAST MEDICAL HISTORY: None other than pneumonia and pleural effusion as mentioned above. Past medical history is also significant for retinoblastoma. PAST SURGICAL HISTORY: None other than attempted thoracocentesis and chest tube placement during this admission. SOCIAL HISTORY: She denies history of smoking, alcohol use, or illicit drug use. FAMILY HISTORY: Positive for hypertension and diabetes. REVIEW OF SYSTEMS: A 14-point review of systems negative except as mentioned in history of presenting illness. PHYSICAL EXAMINATION: VITAL SIGNS: Reviewed as per electronic medical record. HEENT: PERRLA. Extraocular movements are intact. Head is atraumatic and normocephalic. NECK: Supple. CVS: S1, S2 audible. RESPIRATORY: Decreased bilateral air entry. NEUROLOGIC: The patient is alert and awake. LABORATORY DATA: White blood cell count of 19.02, hemoglobin 8.5, hematocrit 28.5, platelets 672. BUN 8, creatinine 0.5, INR 1.2. PTT 58.1. ASSESSMENT AND PLAN: Ms. Brito is a very pleasant 33-year-old female with no significant past medical history other than history of retinoblastoma, presents to the Emergency Department due to chest pain and shortness of breath. She underwent workup revealing left-sided pleural effusion. She has had cardiothoracic evaluation with attempted thoracocentesis, which remained unsuccessful. Finally, she had chest tube placement. Repeat CT scan revealed complex partially loculated large pleural effusion with near collapse of the left lung, which has not significantly changed after having a chest tube placement. The patient was planning to have decortication, however, it was canceled due to the elevated PTT. Now, Hematology-Oncology has been consulted due to anemia and suspected coagulopathy. I have reviewed the record and discussed at length with the patient about her condition and importance of continuation of treatment of loculated effusion as planned. She does have mildly elevated PTT, which could be due to factor deficiency however. At this time, due to severity of her illness, it is appropriate to proceed forward with thoracotomy and decortication after giving the fresh frozen plasma. PTT can be prolonged due to coagulation factor deficiency would need to be checked and I will request factor 2759. Again, that workup can be done in outpatient setting if the patient has no history of bleeding. The patient also have anemia, which appeared to be microcytic, probably related to heavy periods. At this point, I will get baseline anemia workup and start patient on iron infusion if needed. Thank you for the consult. I will continue to be available. Please call with questions. MD MACK Hobbs/MODL /[id number]
[2019-03-20] VITALS (7 sets, daily range): BP systolic 101–118; BP diastolic 64–75
[2019-03-20 05:21] LABS: BASOPHILS # (AUTO) 0.1 (0.0-0.1); BASOPHILS % 0.3 % (0.0-1.0); EOSINOPHILS # (AUTO) 0.1 (0.0-0.4); EOSINOPHILS % 0.7 % (0.0-6.0); HEMATOCRIT 29.3 % (34.2-44.1); HEMOGLOBIN 8.8 g/dL (12.0-16.0); LYMPHOCYTES # (AUTO) 2.2 (1.0-3.2); LYMPHOCYTES % 11.3 % (18.0-39.1); MEAN CORPUSCULAR HEMOGLOBIN 22.3 pg (28-32); MEAN CORPUSCULAR VOLUME 74.4 fL (81-99); MONOCYTES # (AUTO) 1.1 (0.2-0.8); MONOCYTES % 5.8 % (4.4-11.3); NEUTROPHILS # (AUTO) 15.7 (2.1-6.9); NEUTROPHILS % 79.6 % (38.7-80.0); PLATELET COUNT 701 x10e3/uL (140-360); RED BLOOD COUNT 3.94 x10e6/uL (3.6-5.1); RED CELL DISTRIBUTION WIDTH 19.8 % (11.7-14.4)
[2019-03-20] MEDS: MORPHINE SULFATE 2 MG/ML SYR 1ML IV PRN ×3 (05:29→19:48)
[2019-03-20 05:42] LABS: ANION GAP 16.8 mmol/L (8-16); BLOOD UREA NITROGEN 8 mg/dL (7-26); BUN/CREATININE RATIO 15 (6-25); CALCIUM 10.2 mg/dL (8.4-10.2); CARBON DIOXIDE 30 mmol/L (22-29); CHLORIDE 95 mmol/L (98-107); CREATININE, SERUM 0.55 mg/dL (0.57-1.11); EST GLOMERULAR FILTRATION RATE > 60 ML/MIN (60-); GLUCOSE 101 mg/dL (74-118); POTASSIUM 3.8 mmol/L (3.5-5.1); SODIUM 138 mmol/L (136-145)
[2019-03-20 05:56] LABS: MAGNESIUM 2.2 MG/DL (1.3-2.1)
--- NOTE | 2019-03-20 07:00 | NUR ---
Pt received resting in bed. Left chest tube in place. Emotional support given. Will monitor
[2019-03-20] MEDS: HYDROCODONE/APAP 5MG-325MG TAB PO PRN ×3 (08:06→23:39)
[2019-03-20] MEDS: METOPROLOL TARTRATE 25 MG TAB PO SCH ×2 (08:07→21:16)
--- NOTE | 2019-03-20 08:32 | NUR ---
Meds given as ordered. Call moore within reach. Offered bath. Will follow up
--- NOTE | 2019-03-20 10:12 | NUR ---
Updated Dr. Graham regarding orders from Dr. Duran. Dr. Graham stated that pt will have surgery (Thoracotomy) on 03/22 or 03/23. Will monitor
--- NOTE | 2019-03-20 11:52 | Progress Note ---
DATE: 03/20/2019 SUBJECTIVE: The patient was scheduled for thoracotomy. This was postponed due to abnormal coagulation parameters. She was subsequently evaluated by Hematology. She has minimal drainage from her chest tube. PHYSICAL EXAMINATION: VITAL SIGNS: The patient is afebrile. The vital signs are stable. HEENT: No facial swelling or erythema. The nasal mucosa is normal. CARDIAC: Regular rate and rhythm with normal S1, S2. LUNGS: Auscultation of lungs shows decreased breath sounds at the left base. ABDOMEN: Soft, nontender. There is no rebound or guarding. EXTREMITIES: No leg edema or calf tenderness. There is a chest tube on the left side. IMPRESSION: 1. Loculated left pleural effusion, probably representing an empyema. 2. Abnormal coagulation parameters. 3. Anemia secondary to chronic blood loss. PLAN: 1. Await potential thoracotomy tomorrow. 2. Continue IV antibiotics. 3. Pain control. Prince Tenorio MD [facility]/CARLYN /[id number]
[2019-03-20] MEDS: ONDANSETRON HCL INJ 2MG/ML 2ML 2 MG/ML VIAL IV PRN (13:00)
[2019-03-20] MEDS: CEFTRIAXONE SOD 2 GM/NS 100 ML 100 ML IV SCH (13:00)
--- NOTE | 2019-03-20 18:24 | Progress Note ---
DATE: 03/20/2019 SUBJECTIVE: Ms. Brito is doing well, no new complaint. PHYSICAL EXAMINATION: GENERAL: She is currently alert, oriented. VITAL STABLE: Currently, afebrile. The patient is going for thoracotomy. IMPRESSION: Empyema with Streptococcus burden. White count remains at 19, sodium 138, potassium 3.5. Continue with Rocephin, we will increase it to 1 g q.12h. Other medical problems per other consultants. We will follow. MD RUTHIE Aiken/CARLYN /[id number]
--- NOTE | 2019-03-20 18:55 | NUR ---
Received call from Dr. Graham stating that pt will be having LEFT THORACOSCOPY/THORACOTOMY WITH DECORTICATION AND ANY OTHER INDICATED PROCEDURES. Pt to have 2 units of PRBC & 2 units of FFP transfusion in starting after midnight (All to be given before pt leaves for surgery at 12pm). Consent for surgery & Anesthesia obtained. Procedure explained to pt, emotional support given. Handoff given to oncoming shift
[2019-03-20] MEDS: ACETAMINOPHEN 325 MG TAB PO PRN (21:17)
--- NOTE | 2019-03-20 22:19 | NUR ---
patient refused bath tonight.
--- NOTE | 2019-03-20 23:44 | NUR ---
patient is crying complained of pain to left lateral chest. PRN Moncure given, will continue to monitor.
[2019-03-21] VITALS (13 sets, daily range): BP systolic 101–139; BP diastolic 56–97
[2019-03-21] MEDS: CEFTRIAXONE SOD 2 GM/NS 100 ML 100 ML IV SCH ×2 (00:54→13:00)
--- NOTE | 2019-03-21 00:56 | NUR ---
patient just had antiseptic bath, she tolerated well.
[2019-03-21] MEDS ORDERED: SODIUM CHLORIDE 0.9% 250ML 250 ML IV ONE ×2 (01:00→13:15)
[2019-03-21] MEDS: MORPHINE SULFATE 2 MG/ML SYR 1ML IV PRN ×3 (04:30→16:56)
--- NOTE | 2019-03-21 07:22 | NUR ---
reports given to upcoming nurse, questions answered.
[2019-03-21] MEDS ORDERED: HEPARIN SOD/SOD CHLORIDE 1,000 ML ONE (08:29)
[2019-03-21] MEDS ORDERED: HEPARIN SOD (PORCINE) 5,000 UNIT/ML VIAL ONE (08:29)
[2019-03-21] MEDS: METOPROLOL TARTRATE 25 MG TAB PO SCH ×3 (08:36→21:58)
[2019-03-21] MEDS: ONDANSETRON HCL INJ 2MG/ML 2ML 2 MG/ML VIAL IV PRN (09:30)
[2019-03-21] MEDS ORDERED: BACITRACIN 50,000 UNIT VIAL ONE (12:32)
[2019-03-21] MEDS ORDERED: BUPIVACAINE HCL 0.5% INJ 30 ML VIAL INJ ONE (12:32)
--- NOTE | 2019-03-21 14:14 | Progress Note ---
DATE: 03/21/2019 Medicine Progress Note SUBJECTIVE: The patient is scheduled for decortication later today by CV Surgery. PHYSICAL EXAMINATION: VITAL SIGNS: She is afebrile. Temperature 97.7, pulse 105, respiratory rate is 19, blood pressure 111/61, and pulse ox she is on room air 100%. GENERAL: Not in acute distress. Alert and oriented x3. Cooperative on examination. HEENT: Head; normocephalic, atraumatic. Eyes; pupils are equal, round, and reactive to light bilaterally. Extraocular movements intact bilaterally. Throat; no evidence of erythema or exudates in the posterior pharynx. Has poor dentition. NECK: Supple. Good range of motion. PULMONARY: She has decreased breath sounds in the left lower field, decreased output from the chest tube. She still has a chest tube in the left lung chest wall. CARDIOVASCULAR: Positive S1 and S2. No murmurs, rubs, or gallops appreciated. ABDOMEN: Soft, nondistended, and nontender to palpation. Bowel sounds present. MUSCULOSKELETAL: Strength is 5/5 throughout. No evidence of any muscle deficits on examination. No weakness appreciated. NEUROLOGIC: Cranial nerves II through XII grossly intact. No evidence of any neurological deficits on exam. SKIN: Intact. Warm to touch. Good cap refill. PSYCHIATRIC: Normal affect and mood. EXTREMITIES: No edema. Good range of motion throughout. LABORATORY FINDINGS: Show white count 19.6, hemoglobin 8.8, hematocrit 29, and platelets of 701. Chemistries reviewed and stable. Coagulations reviewed and pending several tests. IMPRESSION: 1. Sepsis secondary to left lung effusion with chest tube placement. 2. Community-acquired pneumonia. 3. Sinus tachycardia due to sepsis, fever, and pain. 4. Electrolyte abnormalities. 5. Coagulopathy. 6. Anemia. PLAN: At this time, she is scheduled for surgery later today by CV Surgery. Hematology cleared the patient. Pulmonary is following as well. She will go home on oral antibiotics after decortication if she is stable. She will likely be here for the next several days until she is much improved and once cleared by all consultants. MD CIELO Small/CARLYN /[id number]
[2019-03-21 14:40] LABS: BASOPHILS % 0.3 % (0.0-1.0); EOSINOPHILS # (AUTO) 0.1 (0.0-0.4); EOSINOPHILS % 0.8 % (0.0-6.0); HEMATOCRIT 27.9 % (34.2-44.1); HEMOGLOBIN 8.8 g/dL (12.0-16.0); LYMPHOCYTES # (AUTO) 2.3 (1.0-3.2); LYMPHOCYTES % 16.3 % (18.0-39.1); MEAN CORPUSCULAR HEMOGLOBIN 23.7 pg (28-32); MEAN CORPUSCULAR HGB CONC 31.5 g/dL (31-35); MEAN CORPUSCULAR VOLUME 75.2 fL (81-99); MONOCYTES % 6.9 % (4.4-11.3); NEUTROPHILS # (AUTO) 10.4 (2.1-6.9); NEUTROPHILS % 74.5 % (38.7-80.0); PLATELET COUNT 548 x10e3/uL (140-360); RED BLOOD COUNT 3.71 x10e6/uL (3.6-5.1); RED CELL DISTRIBUTION WIDTH 19.1 % (11.7-14.4)
[2019-03-21 14:46] LABS: INR 1.18; PROTHROMBIN TIME 15.6 seconds (11.9-14.5)
[2019-03-21 14:47] LABS: PARTIAL THROMBOPLASTIN TIME 46.2 seconds (23.8-35.5)
[2019-03-21] MEDS ORDERED: ALBUMIN 25% 12.5GM 50ML 50 ML IV ONE (14:47)
[2019-03-21] MEDS ORDERED: GLYCOPYRROLATE INJ 1MG/ 5 ML SYR ONE (14:50)
[2019-03-21] MEDS ORDERED: PROPOFOL IV EMULSION 10 MG/ML 20 ML VIAL ONE (14:50)
[2019-03-21] MEDS ORDERED: HYDROMORPHONE 2MG/ML 2 MG/ML ML ONE (14:50)
[2019-03-21] MEDS ORDERED: DEXAMETHASONE SOD PHOS INJ 4 MG/ML VIAL ONE (14:50)
[2019-03-21] MEDS ORDERED: ACETAMINOPHEN 1000 MG/100 ML IV ONE (14:50)
[2019-03-21] MEDS ORDERED: VASOPRESSIN INJ 20 UNIT/ML VIAL ONE (14:50)
[2019-03-21] MEDS ORDERED: NEOSTIGMINE 5 MG/5ML SYR ONE (14:50)
[2019-03-21] MEDS ORDERED: PHENYLEPHRINE HCL 1% 10 MG/ML VIAL ONE (14:50)
[2019-03-21] MEDS ORDERED: LIDOCAINE HCL 2% LOCAL INJ 5 ML SDV VIAL INJ ONE (14:50)
[2019-03-21] MEDS ORDERED: SEVOFLURANE INHAL SOLN 250 ML PEN BTL ONE (14:50)
[2019-03-21] MEDS ORDERED: ROCURONIUM BROMIDE 10 MG/ML 5ML VIAL ONE (14:50)
[2019-03-21] MEDS ORDERED: KETOROLAC TROMETHAMINE 30 MG/ML VIAL ONE (14:50)
[2019-03-21] MEDS ORDERED: ONDANSETRON HCL INJ 2MG/ML 2ML 2 MG/ML VIAL ONE (14:50)
[2019-03-21 15:00] LABS: ABG HCO3 28 mmol/L (23-28); ABG PCO2 36 mmHg (41-51); ABG PH 7.49 (7.31-7.41); ABG PO2 139 mmHg (80-105)
[2019-03-21] MEDS ORDERED: ALBUMIN 25% 12.5GM 50ML 100 ML IV ONE (15:00)
[2019-03-21] MEDS: DEXTROSE 5%/0.45% SOD CHL 1,000 ML IV SCH (17:43)
[2019-03-21] MEDS: MORPHINE SULFATE INJ 4 MG/ML INJ 1ML IV PRN ×2 (17:43→21:39)
[2019-03-21 17:44] LABS: INR 1.31; PROTHROMBIN TIME 16.9 seconds (11.9-14.5)
[2019-03-21 17:45] LABS: PARTIAL THROMBOPLASTIN TIME 41.3 seconds (23.8-35.5)
[2019-03-21 17:52] LABS: ANION GAP 12.7 mmol/L (8-16); BLOOD UREA NITROGEN 7 mg/dL (7-26); BUN/CREATININE RATIO 13 (6-25); CALCIUM 8.7 mg/dL (8.4-10.2); CARBON DIOXIDE 28 mmol/L (22-29); CHLORIDE 101 mmol/L (98-107); CREATININE, SERUM 0.52 mg/dL (0.57-1.11); EST GLOMERULAR FILTRATION RATE > 60 ML/MIN (60-); GLUCOSE 148 mg/dL (74-118); POTASSIUM 3.7 mmol/L (3.5-5.1); SODIUM 138 mmol/L (136-145)
--- NOTE | 2019-03-21 17:58 | Diagnostic Imaging Report ---
EXAMINATION: CHEST SINGLE (PORTABLE) INDICATION: ^thoracotomy ^[id number] ^[id number] COMPARISON: 03/16/2019 FINDINGS: TUBES and LINES: Left chest tubes. One of the tubes is new. Right internal jugular central venous catheter with distal tip over the right atrial/superior vena cava junction LUNGS: Persistent near complete opacification of the left hemithorax due to a combination of pleural effusion and atelectasis. Slight improved aeration of the left lung when compared with the prior exam. The right lung is well expanded and clear. PLEURA: Likely a small left hydropneumothorax. HEART AND MEDIASTINUM: The cardiomediastinal silhouette is mildly enlarged. BONES AND SOFT TISSUES: No acute osseous abnormality. UPPER ABDOMEN: No free air under the diaphragm. IMPRESSION: Unchanged appearance of large left pleural effusion with associated near collapse of the left lung. Slight improved aeration of the left lung when compared with the prior exam. Left chest tubes. One of the tubes is new. Right internal jugular central venous catheter with distal tip over the right atrial/superior vena cava junction Signed by: Dr. Yandel Worthington M.D. on 03/21/2019 5:55 PM
[2019-03-21] MEDS ORDERED: MIDAZOLAM HCL 2 MG/2 ML VIAL ONE (18:28)
[2019-03-21] MEDS ORDERED: FENTANYL CITRATE/PF 100MCG/2 ML INJ ONE (18:28)
[2019-03-21] MEDS ORDERED: MORPHINE SULFATE 2 MG/ML SYR 1ML IV PRN (19:00)
[2019-03-21] MEDS: MELATONIN 5 MG TABLET PO PRN (22:01)
[2019-03-21] MEDS ORDERED: HYDROMORPHONE 1MG/1ML INJ ONE (22:32)
[2019-03-21] MEDS: HYDROMORPHONE 1MG/1ML INJ IV PRN (22:48)
[2019-03-21] MEDS: LORAZEPAM INJ 2 MG/ML VIAL IV PRN (23:45)
[2019-03-22] VITALS (25 sets, daily range): BP systolic 108–132; BP diastolic 66–89
--- NOTE | 2019-03-22 00:01 | Operative Report ---
DATE OF PROCEDURE: 03/21/2019 SURGEON: Jean Graham MD PREOPERATIVE DIAGNOSES: Loculated left pleural effusion, respiratory insufficiency. POSTOPERATIVE DIAGNOSES: Loculated left pleural effusion, respiratory insufficiency. OPERATIVE PROCEDURE: 1. Left thoracoscopy. 2. Left thoracotomy. 3. Full decortication of left lung. 4. Drainage of loculated pleural effusion. 5. Left pleural biopsy. 6. Multilevel intercostal nerve block. SENIOR GL ACCOUNTANT: Jean Graham MD. KETTLE HAND: Nursing staff. ANESTHESIA: General endotracheal with a double-lumen endotracheal tube. INDICATIONS: This is a 33-year-old lady with a history of retinoblastoma, who presented with a large loculated effusion of the left lung. She is not a smoker and denies alcohol use. She did not respond to chest tube drainage. Drainage of the pleural effusion and decortication was recommended. Prior to surgery, I discussed the risks of surgery with the patient and her mother. I told them both of the risks of surgery would include , bleeding, infection, heart attack, stroke, pneumonia, prolonged ICU stay, mechanical ventilation, tracheostomy, the possibility of malignancy, the possibility of recurrent infection, etc. The patient and her mother each stated that they understood, no further questions, and wanted to proceed. FINDINGS: 1. Extensive foul smelling loculated left pleural effusion. Multiple cultures were sent. 2. Thick cortical peel. Sent for pathologic analysis as well as cultures. Frozen section revealed cellularity compatible with possible malignancy. PROCEDURE IN DETAIL: The patient was taken to the operating room on March 21, 2019 and placed supine up on the operating room table. General endotracheal anesthesia was smoothly induced. The left chest was sterilely prepped and draped in the usual fashion using alcohol prewash and Betadine scrub and solution. Time-out was performed appropriately. Thoracoscope was introduced. There were extensive effusions, which precluded a complete exam. Thoracoscopy was not too adequate to perform the procedure. Left lateral thoracotomy was then performed. The chest was entered through the intercostal space about a fingerbreadth and a half below the scapula. Multiple adhesions of the lung and pleura to the chest wall were taken down sharply and with cautery. The entire lung was mobilized. There was extensive loculated pleural effusion. This was yellow, thick, and foul smelling. Cultures were sent. Cytology was sent as well. Then, a full decortication of extensive adhesions of the pleura to the lung was performed. The lung was completely decorticated. The specimen was sent for frozen and permanent pathology. Frozen section returned with extensive cellularity and suspicion was for malignancy. I discussed this with the pathologist by phone. She felt she had more than enough material to make a final diagnosis. No lung biopsy was recommended as the cellularity appeared confined to the pleura. There were no lung lesions palpable. The underlying lung was of normal consistency. There was good hemostasis. Two chest tubes were inserted through separate stab wound incisions. Multilevel intercostal nerve block was performed using 0.5% Marcaine. After the multilevel intercostal nerve block had been completed, the chest cavity was copiously irrigated with warm saline. There was excellent hemostasis. The lung was then inflated. Inflated well, although there were still areas that did not expand completely. Decortication had been completed. It should be noted that the cortical peel did come off the underlying lung parenchyma fairly well in all areas and did not seem to invade the underlying lung, as with some malignancies. The chest was closed in standard fashion using interrupted [id number] #1 pericostal sutures. Muscle layers, subcutaneous tissue, and skin were closed using absorbable suture. Sterile dressings were applied. Sponge, instrument, and needle counts were correct prior to and after wound closure. Independent search of the operative field by both operating surgeons and nurse revealed no retained instruments or sponges. The patient tolerated the procedure well, was taken to the recovery area in stable condition. MD LUDIN Faith/AVELL /[id number]
[2019-03-22] MEDS: CEFTRIAXONE SOD 2 GM/NS 100 ML 100 ML IV SCH ×2 (00:39→12:50)
[2019-03-22] MEDS: HYDROMORPHONE 1MG/1ML INJ IV PRN ×6 (02:05→21:18)
[2019-03-22 05:05] LABS: BASOPHILS % 0.1 % (0.0-1.0); HEMOGLOBIN 7.9 g/dL (12.0-16.0); LYMPHOCYTES # (AUTO) 1.3 (1.0-3.2); LYMPHOCYTES % 4.8 % (18.0-39.1); MEAN CORPUSCULAR HEMOGLOBIN 23.3 pg (28-32); MEAN CORPUSCULAR HGB CONC 30.4 g/dL (31-35); MEAN CORPUSCULAR VOLUME 76.7 fL (81-99); MONOCYTES # (AUTO) 1.2 (0.2-0.8); MONOCYTES % 4.3 % (4.4-11.3); NEUTROPHILS # (AUTO) 24.3 (2.1-6.9); NEUTROPHILS % 89.7 % (38.7-80.0); PLATELET COUNT 805 x10e3/uL (140-360); RED BLOOD COUNT 3.39 x10e6/uL (3.6-5.1); RED CELL DISTRIBUTION WIDTH 19.4 % (11.7-14.4)
[2019-03-22 05:15] LABS: INR 1.23; PROTHROMBIN TIME 16.1 seconds (11.9-14.5)
[2019-03-22 05:16] LABS: PARTIAL THROMBOPLASTIN TIME 44.6 seconds (23.8-35.5)
[2019-03-22 05:21] LABS: ANION GAP 14.6 mmol/L (8-16); BLOOD UREA NITROGEN 9 mg/dL (7-26); BUN/CREATININE RATIO 17 (6-25); CALCIUM 9.3 mg/dL (8.4-10.2); CARBON DIOXIDE 27 mmol/L (22-29); CHLORIDE 98 mmol/L (98-107); CREATININE, SERUM 0.52 mg/dL (0.57-1.11); EST GLOMERULAR FILTRATION RATE > 60 ML/MIN (60-); GLUCOSE 152 mg/dL (74-118); POTASSIUM 3.6 mmol/L (3.5-5.1); SODIUM 136 mmol/L (136-145)
[2019-03-22] MEDS: LORAZEPAM INJ 2 MG/ML VIAL IV PRN (05:40)
--- NOTE | 2019-03-22 06:50 | Diagnostic Imaging Report ---
Examination: Single AP view of the chest. COMPARISON: Portable chest 03/21/2019 INDICATION: Tachycardia, postthoracotomy IMPRESSION: 1. Lines and Tubes: Supporting lines and tubes are unchanged. 2 left-sided thoracotomy tubes are again visualized 2. Lungs are well-inflated. Slightly improved aeration of the left hemithorax when compared to prior exam. No interval change in likely small hydropneumothorax. Right lung is grossly clear. 3. Cardiac silhouette is partially obscured. Central pulmonary venous congestion. 4. No acute bony abnormalities. Signed by: Dr. Ashkan Champagne M.D. on 03/22/2019 6:46 AM
--- NOTE | 2019-03-22 07:18 | NUR ---
discontinued left radial arterilal line. held pressure. hemostasis achieved. pressure bandage applied. repositioned patient
[2019-03-22] MEDS: DEXTROSE 5%/0.45% SOD CHL 1,000 ML IV SCH ×2 (07:29→20:27)
[2019-03-22] MEDS: METOPROLOL TARTRATE 25 MG TAB PO SCH ×2 (09:29→21:18)
[2019-03-22 09:41] LABS: LYMPHOCYTES % (MANUAL) 7 % (19-48); MONOCYTES % (MANUAL) 5 % (3.4-9.0); NEUTROPHILS % (MANUAL) 88 % (40-74); PLATELET ESTIMATE MARKEDLY INCREASED
[2019-03-22 09:42] LABS: PLATELET MORPHOLOGY COMMENT FEW LARGE; RBC MORPHOLOGY COMMENT NORMAL
[2019-03-22] MEDS: ONDANSETRON HCL INJ 2MG/ML 2ML 2 MG/ML VIAL IV PRN (10:36)
[2019-03-22] MEDS: HYDROCODONE/APAP 5MG-325MG TAB PO PRN ×3 (10:37→23:10)
--- NOTE | 2019-03-22 14:36 | Progress Note ---
DATE: 03/22/2019 Medicine Progress Note SUBJECTIVE: The patient is currently in the ICU after decortication produced that was performed yesterday. She is otherwise doing well. She does have some pain. She is tolerating diet well. Discussed plan of care with the nurse, taking care of the patient. PHYSICAL EXAMINATION: VITAL SIGNS: Temperature is 98.5, T-max is 100.8, pulse 110, respiratory rate is 24, blood pressure is 129/84, pulse ox 100% on 2 L nasal cannula. She also has two left-sided chest tubes placed. GENERAL: Not in acute distress. Alert and oriented x3. Cooperative on examination. HEENT: Head; normocephalic, atraumatic. Eyes; pupils are equal, round, and reactive to light bilaterally. Extraocular movements are intact bilaterally. Throat; no evidence of erythema or exudates in the posterior pharynx. Has poor dentition. NECK: Supple. Good range of motion. PULMONARY: Clear to auscultation bilaterally. No wheezing, no rales, no rhonchi, no crackles appreciated. She has two chest tubes in the left chest wall. CARDIOVASCULAR: Positive S1, S2. No murmurs, rubs, or gallops appreciated. ABDOMEN: Soft, nondistended, and nontender to palpation. Bowel sounds present. MUSCULOSKELETAL: Strength is 5/5 throughout. No evidence of any muscle deficits on examination. No weakness appreciated. NEUROLOGIC: Cranial nerve II through XII grossly intact. No evidence of any neurological deficits on exam. SKIN: Intact. Warm to touch. Good cap refill. PSYCHIATRIC: Normal affect and mood. EXTREMITIES: No edema. Good range of motion throughout. LABORATORY DATA: Labs show white count 27, hemoglobin 7.9, hematocrit is 26 and platelets was 805. Coagulation; PT 16, INR 1.2, PTT 44.6. Her factor V Leiden mutation, factor V Leiden interpretation, factor VII and factor IX are all pending as now send out. Chemistry; sodium 136, potassium 3.6, chloride 98, bicarbonate 27, anion gap of 14, BUN is 9, creatinine 0.52, glucose 152, calcium is 9.3. Iron saturation is 4%. IMPRESSION: 1. Sepsis secondary to left lung effusion with now two chest tubes, status post decortication performed/community-acquired pneumonia/leukocytosis with low-grade fever. 2. Community-acquired pneumonia. 3. Electrolyte abnormalities. 4. Coagulopathy with underlying anemia. PLAN: At this time, as per reading the report from the CV surgeon, the findings on the surgery showed extensive foul-smelling loculated left pleural effusion. Multiple cultures were sent. There was thick cortical peeling. There was also some frozen section reveals cellularity compatible with possible malignancy. This was all sent, I will wait for the final results. Follow the cultures and cytology and pathology results. Continue with IV antibiotics per ID. White count was elevated, could be all reactive due to recent surgery. She is afebrile. Currently, and her platelet is slightly elevated as well, probably reactive. Continue with aggressive IV antibiotics. Monitor cultures. ID is following. Pulmonary Critical Care is following as well. Hematology/Oncology is following as well. She is currently resting comfortably. She does have pain, pain is well controlled with current pain regimen. She has [address] as well. Otherwise, we will continue with same plan of care and monitor very closely. Encourage ambulation and oral feeds. Repeat labs in the morning. MD CIELO Small/CARLYN /[id number]
--- NOTE | 2019-03-22 16:06 | Progress Note ---
DATE: 03/22/2019 Pulmonary Critical Care Progress Note SUBJECTIVE: The patient went for decortication and thoracotomy yesterday. She is in the ICU and has [address] She did require some pain control. PHYSICAL EXAMINATION: VITAL SIGNS: The patient is afebrile. The vital signs are stable. CARDIAC: Reveals regular rate and rhythm with normal S1 and S2. LUNGS: Auscultation of lungs reveals decreased breath sounds at the bases. There is no wheezing. ABDOMEN: Soft and nontender. There is no rebound or guarding. EXTREMITIES: Shows no leg edema or calf tenderness. IMPRESSION: Empyema secondary to Streptococcus viridans with severe sepsis, present on admission. PLAN: 1. Continue current antibiotics. 2. Continue chest tube drainage. 3. Await final pathology results. Prince Tenorio MD [facility]/MODL /[id number]
[2019-03-22] MEDS ORDERED: IRON SUCROSE 100 MG in SODIUM CHLORIDE 0.9% 100 ML 100 ML IV ONE (20:00)
[2019-03-23] MEDS: LORAZEPAM INJ 2 MG/ML VIAL IV PRN ×2 (00:07→06:11)
[2019-03-23] MEDS: HYDROMORPHONE 1MG/1ML INJ IV PRN ×7 (00:07→22:36)
[2019-03-23] MEDS: CEFTRIAXONE SOD 2 GM/NS 100 ML 100 ML IV SCH ×2 (00:25→12:34)
[2019-03-23 05:22] LABS: BASOPHILS % 0.1 % (0.0-1.0); EOSINOPHILS # (AUTO) 0.1 (0.0-0.4); EOSINOPHILS % 0.4 % (0.0-6.0); HEMATOCRIT 24.2 % (34.2-44.1); HEMOGLOBIN 7.3 g/dL (12.0-16.0); LYMPHOCYTES # (AUTO) 1.6 (1.0-3.2); LYMPHOCYTES % 12.1 % (18.0-39.1); MEAN CORPUSCULAR HEMOGLOBIN 23.4 pg (28-32); MEAN CORPUSCULAR HGB CONC 30.2 g/dL (31-35); MEAN CORPUSCULAR VOLUME 77.6 fL (81-99); MONOCYTES # (AUTO) 1.1 (0.2-0.8); MONOCYTES % 8.1 % (4.4-11.3); NEUTROPHILS # (AUTO) 10.5 (2.1-6.9); NEUTROPHILS % 78.3 % (38.7-80.0); PLATELET COUNT 718 x10e3/uL (140-360); RED BLOOD COUNT 3.12 x10e6/uL (3.6-5.1); RED CELL DISTRIBUTION WIDTH 19.9 % (11.7-14.4)
[2019-03-23 05:45] LABS: ANION GAP 11.5 mmol/L (8-16); BLOOD UREA NITROGEN 5 mg/dL (7-26); BUN/CREATININE RATIO 10 (6-25); CALCIUM 9.3 mg/dL (8.4-10.2); CARBON DIOXIDE 31 mmol/L (22-29); CHLORIDE 98 mmol/L (98-107); EST GLOMERULAR FILTRATION RATE > 60 ML/MIN (60-); GLUCOSE 104 mg/dL (74-118); POTASSIUM 3.5 mmol/L (3.5-5.1); SODIUM 137 mmol/L (136-145)
--- NOTE | 2019-03-23 06:55 | Diagnostic Imaging Report ---
Examination: Single AP view of the chest. COMPARISON: Portable chest 03/22/2019 INDICATION: Post thoracotomy and left chest tube IMPRESSION: 1. Lines and Tubes: 2 left-sided thoracotomy tubes are again visualized and unchanged. Stable right-sided IJ central line, with distal tip projecting in the proximal right atrium. 2. No significant interval change in opacification of the lower left hemithorax and obscuration of the left hemidiaphragm, likely reflecting hydropneumothorax. Right lung is grossly clear. 3. Partially obscured cardiac silhouette. Mild central venous congestion. 4. No acute bony abnormalities. Signed by: Dr. Ashkan Champagne M.D. on 03/23/2019 6:51 AM
[2019-03-23 07:15] VITALS: BP 118/77
[2019-03-23 07:20] VITALS: BP 118/77
--- NOTE | 2019-03-23 07:30 | NUR ---
Pt received resting in bed. Alert and oriented x4 (blind in left eye) with 2 left sided chest tubes to suction, bloody fluid noted in tube. Oriented to staff and surroundings. Encouraged to press call moore if help needed. Emotional support given. Call moore within reach. Will monitor
[2019-03-23] MEDS: METOPROLOL TARTRATE 25 MG TAB PO SCH ×2 (08:02→20:15)
[2019-03-23] MEDS: ONDANSETRON HCL INJ 2MG/ML 2ML 2 MG/ML VIAL IV PRN ×3 (09:10→17:05)
[2019-03-23] MEDS: HYDROCODONE/APAP 5MG-325MG TAB PO PRN ×2 (10:45→19:53)
[2019-03-23] MEDS: DEXTROSE 5%/0.45% SOD CHL 1,000 ML IV SCH (10:46)
[2019-03-23 11:30] VITALS: BP 131/85
--- NOTE | 2019-03-23 13:01 | Progress Note ---
DATE: 03/23/2019 Medicine Progress Note SUBJECTIVE: The patient is doing a little better today with no other issues. The patient was transferred from ICU to [facility]. She is still complaining of pain in the left chest wall. Still has significant amount of output from the two chest tubes. PHYSICAL EXAMINATION: VITAL SIGNS: Temperature is 97.8, pulse is 100, respiratory rate is 20, blood pressure 118/77, pulse ox is 100% on 2 L nasal cannula. GENERAL: Not in acute distress. Alert and oriented x3. Cooperative on examination. HEENT: Head; normocephalic, atraumatic. Eyes; pupils are equal, round, and reactive to light bilaterally. Extraocular movements are intact bilaterally. Throat; no evidence of erythema or exudates in the posterior pharynx. Has poor dentition. NECK: Supple. Good range of motion. PULMONARY: No wheezing, no rales, no rhonchi, no crackles appreciated. She is clear to auscultation bilaterally. She does have two chest tubes in the left chest wall. CARDIOVASCULAR: Positive S1, S2. No murmurs, rubs, or gallops appreciated. ABDOMEN: Soft, nondistended, and nontender to palpation. Bowel sounds present. MUSCULOSKELETAL: Strength is 5/5 throughout. No evidence of any muscle deficits on examination. No weakness appreciated. NEUROLOGIC: Cranial nerve II through XII grossly intact. No evidence of any neurological deficits on exam. SKIN: Intact. Warm to touch. Good cap refill. PSYCHIATRIC: Normal affect and mood. EXTREMITIES: No edema. Good range of motion throughout. LABORATORY DATA: Lab findings show white count 13, hemoglobin 7.3, hematocrit 24, platelets of 718. Chemistry; sodium 137, potassium 3.5, chloride 98, bicarb 31, anion gap of 11, BUN is 5, creatinine is 0.5, glucose is 104, calcium is 9.3. MICROBIOLOGY: Repeat blood cultures, no growth, still waiting on the pleural fluid cultures. Currently, no growth to date. IMAGING STUDIES: Chest x-ray this morning showed two left-sided thoracotomy tubes again visualized was unchanged. There is no significant interval change in opacity of the left lower hemothorax. Obscuration of the left hemidiaphragm reflect hydropneumothorax. Right lung is grossly clear. Partially obscured cardiac silhouette. IMPRESSION: 1. Sepsis secondary to left lung effusion, status post decortication with [address] with decreased leukocytosis secondary to underlying community-acquired pneumonia. 2. Community-acquired pneumonia. 3. Electrolyte abnormalities. 4. Coagulopathy with underlying anemia. PLAN: At this time, she is still complains of pain in the left chest wall area. I will increase the Dilaudid to 1 mg q.4 hours p.r.n. Await for final cultures of the pleural fluid. She still has 2 chest tubes with output. Follow with CV Surgery, Infectious Disease and Pulmonary recommendations. Repeat labs in the morning. Continue with aggressive IV antibiotic therapy for now. I discussed plan of care with nurse and the patient at bedside. MD CIELO Small/CARLYN /[id number]
--- NOTE | 2019-03-23 13:40 | NUR ---
Pt given pain meds as requested. Emotional support given. Will monitor
[2019-03-23 15:56] VITALS: BP 125/80
--- NOTE | 2019-03-23 18:02 | Progress Note ---
DATE: 03/23/2019 SUBJECTIVE: Ms. Brito is comfortable, doing well. No new complaints. She still have two chest tubes. She still have significant amount of drainage. PHYSICAL EXAMINATION: VITAL SIGNS: Stable, afebrile. Temperature 97.8, heart rate 100, respirations 20. HEENT: Normocephalic, not icteric. NECK: Supple. CHEST: Crackles. COR: S1 and S2. ABDOMEN: Soft. Possible tenderness. EXTREMITIES: No edema. SKIN: No rash. IMPRESSION: 1. Sepsis with Streptococcus viridans present on admission. Continue with Rocephin 1 g q.12. 2. Empyema status post decortication. 3. We will follow. MD RUTHIE Aiken/CARLYN /[id number]
--- NOTE | 2019-03-23 19:08 | NUR ---
Handoff given to oncoming RN. Pt resting in bed. Call moore within reach.
[2019-03-23 19:54] VITALS: BP 131/68
[2019-03-23 21:26] VITALS: BP 131/68
[2019-03-24] VITALS (7 sets, daily range): BP systolic 112–126; BP diastolic 66–83
[2019-03-24] MEDS: CEFTRIAXONE SOD 2 GM/NS 100 ML 100 ML IV SCH ×2 (01:01→12:35)
[2019-03-24] MEDS: DEXTROSE 5%/0.45% SOD CHL 1,000 ML IV SCH ×2 (01:13→08:00)
[2019-03-24] MEDS: HYDROMORPHONE 1MG/1ML INJ IV PRN ×5 (02:30→20:42)
[2019-03-24 05:37] LABS: BASOPHILS # (AUTO) 0.1 (0.0-0.1); BASOPHILS % 0.3 % (0.0-1.0); EOSINOPHILS # (AUTO) 0.1 (0.0-0.4); EOSINOPHILS % 0.5 % (0.0-6.0); HEMATOCRIT 26.3 % (34.2-44.1); HEMOGLOBIN 7.8 g/dL (12.0-16.0); LYMPHOCYTES % 14.1 % (18.0-39.1); MEAN CORPUSCULAR HEMOGLOBIN 22.9 pg (28-32); MEAN CORPUSCULAR HGB CONC 29.7 g/dL (31-35); MEAN CORPUSCULAR VOLUME 77.4 fL (81-99); MONOCYTES # (AUTO) 1.1 (0.2-0.8); MONOCYTES % 7.9 % (4.4-11.3); NEUTROPHILS # (AUTO) 10.9 (2.1-6.9); NEUTROPHILS % 76.1 % (38.7-80.0); PLATELET COUNT 871 x10e3/uL (140-360)
[2019-03-24 05:55] LABS: ANION GAP 14.1 mmol/L (8-16); BLOOD UREA NITROGEN 5 mg/dL (7-26); BUN/CREATININE RATIO 10 (6-25); CALCIUM 9.7 mg/dL (8.4-10.2); CARBON DIOXIDE 30 mmol/L (22-29); CHLORIDE 97 mmol/L (98-107); CREATININE, SERUM 0.51 mg/dL (0.57-1.11); EST GLOMERULAR FILTRATION RATE > 60 ML/MIN (60-); GLUCOSE 107 mg/dL (74-118); POTASSIUM 3.1 mmol/L (3.5-5.1); SODIUM 138 mmol/L (136-145)
--- NOTE | 2019-03-24 06:50 | NUR ---
Handoff received from crop duster nurse. Pt resting in bed, 2 left sided chest tubes in place. Call moore within reach. Will monitor
[2019-03-24] MEDS: METOPROLOL TARTRATE 25 MG TAB PO SCH ×2 (07:30→20:42)
[2019-03-24] MEDS: ONDANSETRON HCL INJ 2MG/ML 2ML 2 MG/ML VIAL IV PRN ×3 (07:30→16:40)
--- NOTE | 2019-03-24 07:30 | NUR ---
Pt given pain meds as requested. Educated regarding pain management. Call moore within reach. Will monitor
--- NOTE | 2019-03-24 07:36 | Diagnostic Imaging Report ---
Examination: Single AP view of the chest. COMPARISON: AP chest 03/23/2019 INDICATION: Thoracotomy, chest tubes IMPRESSION: 1. Lines and Tubes: Unchanged right IJ central line and 2 chest tubes, with distal tips projecting in the region of the left upper lobe/apex.. 2. No significant interval change in opacification of the lower left hemithorax and obscuration of the left hemidiaphragm, likely reflecting hydropneumothorax. Right lung is grossly clear. 3. Partially obscured cardiac silhouette. Mild central venous congestion. 4. No acute bony abnormalities. Signed by: Dr. Ashkan Champagne M.D. on 03/24/2019 7:33 AM
--- NOTE | 2019-03-24 08:00 | NUR ---
Right IJ double lumen dressing changed, tubing changed as well. Emotional support given. Call moore within reach. Will monitor
[2019-03-24] MEDS ORDERED: LORAZEPAM 1 MG TAB PO PRN (09:30)
[2019-03-24] MEDS ORDERED: POTASSIUM CHLORIDE 20 MEQ TAB CR PO ONE (09:45)
[2019-03-24] MEDS: HYDROCODONE/APAP 10MG-325MG TAB PO PRN (09:55)
--- NOTE | 2019-03-24 12:12 | Progress Note ---
DATE: 03/24/2019 Medicine Progress Note SUBJECTIVE: The patient is complaining of pain around the chest tube site. Pain medications and anxiety medications were adjusted accordingly. PHYSICAL EXAMINATION: VITAL SIGNS: Temperature 98, pulse is 116, respiratory rate is 20, blood pressure 115/83, and pulse ox 100% on 2 L nasal cannula. GENERAL: Not in acute distress. Alert and oriented x3. Cooperative on examination. HEENT: Head; normocephalic, atraumatic. Eyes; pupils are equal, round, and reactive to light bilaterally. Extraocular movements are intact bilaterally. Throat; no evidence of erythema or exudates in the posterior pharynx. Has poor dentition. NECK: Supple. Good range of motion. PULMONARY: Clear to auscultation bilaterally. No wheezing, no rales, no rhonchi, no crackles appreciated. CARDIOVASCULAR: Positive S1, S2. No murmurs, rubs, or gallops appreciated. ABDOMEN: Soft, nondistended, and nontender to palpation. Bowel sounds present. MUSCULOSKELETAL: Strength is 5/5 throughout. No evidence of any muscle deficits on examination. No weakness appreciated. NEUROLOGIC: Cranial nerve II through XII grossly intact. No evidence of any neurological deficits on exam. SKIN: Intact. Warm to touch. Good cap refill. PSYCHIATRIC: Normal affect and mood. EXTREMITIES: No edema. Good range of motion throughout. LABORATORY DATA: Lab findings show white count 14.3, hemoglobin 7.8, hematocrit 26, platelets of 71. Chemistry; sodium 130, potassium 3.1, chloride 97, bicarb 30, anion gap of 14, BUN is 5, creatinine is 0.51, glucose 107, calcium 9.7. MICROBIOLOGY: Repeat blood cultures showed no growth. Pleural fluid cultures still no growth today. IMAGING DATA: Chest x-ray this morning on 03/24/2019, shows no significant interval change in opacity of the left lower hemothorax. Obscuration of the left hemidiaphragm likely reflecting hydropneumothorax. Right lung is grossly clear. IMPRESSION: 1. Sepsis secondary to the left lung effusion, status post decortication with [address] with decreased leukocytosis secondary to community-acquired pneumonia. 2. Community-acquired pneumonia. 3. Electrolyte abnormalities. 4. Coagulopathy with underlying anemia, being managed by Hematology. PLAN: At this time, she continues to complain of pain in the left chest wall area. We will continue with the Dilaudid 1 mg q.4 hours p.r.n., increase the [place] from 5 mg to 10 mg q.6 p.r.n. I will add a low-dose anxiety medication orally. She still has 2 chest tubes. We will reach out to CV surgery and see when he will pull out the chest tubes. ID, Pulmonary, and Hematology are all following. We will continue with same plan of care. Monitor closely. Replace potassium. MD CIELO Small/MODL /[id number]
[2019-03-24] MEDS: PANTOPRAZOLE SOD 40 MG TABEC PO SCH (16:55)
--- NOTE | 2019-03-24 17:24 | Progress Note ---
DATE: 03/24/2019 SUBJECTIVE: The patient is receiving pain medication. She still has chest tubes in place. Her white blood cell count has improved. PHYSICAL EXAMINATION: VITAL SIGNS: The patient is afebrile. The vital signs are stable. CARDIAC: Reveals regular rate and rhythm with normal S1, S2. There are no murmurs or rubs. LUNGS: Auscultation of lungs reveals decreased breath sounds at the bases. There is no wheezing. ABDOMEN: Soft, nontender. There is no rebound or guarding. EXTREMITIES: Show no leg edema or calf tenderness. There is no cyanosis or clubbing. SKIN: Shows no rashes. NEUROLOGICAL: Shows no focal abnormalities. IMPRESSION: Empyema, secondary to Streptococcus viridans and community-acquired pneumonia. PLAN: 1. Continue antibiotics. 2. Discuss potential removal of chest tubes with CT Surgery. 3. Continue pain control. 4. Await pathology. Prince Tenorio MD [facility]/AVELL /[id number]
--- NOTE | 2019-03-24 18:55 | NUR ---
Handoff given to oncoming nurse. #1 chest tube output 5ml & #2 chest tube 10ml
[2019-03-25] MEDS: CEFTRIAXONE SOD 2 GM/NS 100 ML 100 ML IV SCH ×2 (01:00→12:35)
[2019-03-25] MEDS: DEXTROSE 5%/0.45% SOD CHL 1,000 ML IV SCH (01:30)
[2019-03-25 05:33] LABS: BASOPHILS # (AUTO) 0.1 (0.0-0.1); BASOPHILS % 0.5 % (0.0-1.0); EOSINOPHILS # (AUTO) 0.2 (0.0-0.4); EOSINOPHILS % 1.5 % (0.0-6.0); LYMPHOCYTES # (AUTO) 1.9 (1.0-3.2); LYMPHOCYTES % 18.3 % (18.0-39.1); MEAN CORPUSCULAR HEMOGLOBIN 22.9 pg (28-32); MEAN CORPUSCULAR HGB CONC 29.1 g/dL (31-35); MEAN CORPUSCULAR VOLUME 78.8 fL (81-99); MONOCYTES # (AUTO) 0.8 (0.2-0.8); MONOCYTES % 7.7 % (4.4-11.3); NEUTROPHILS # (AUTO) 7.3 (2.1-6.9); NEUTROPHILS % 70.8 % (38.7-80.0); PLATELET COUNT 639 x10e3/uL (140-360); RED BLOOD COUNT 2.88 x10e6/uL (3.6-5.1); RED CELL DISTRIBUTION WIDTH 20.4 % (11.7-14.4)
[2019-03-25 05:45] LABS: HEMATOCRIT 22.7 % (34.2-44.1); HEMOGLOBIN 6.6 g/dL (12.0-16.0)
[2019-03-25 06:06] LABS: ANION GAP 12.4 mmol/L (8-16); BLOOD UREA NITROGEN 6 mg/dL (7-26); BUN/CREATININE RATIO 13 (6-25); CALCIUM 9.1 mg/dL (8.4-10.2); CARBON DIOXIDE 32 mmol/L (22-29); CHLORIDE 100 mmol/L (98-107); CREATININE, SERUM 0.45 mg/dL (0.57-1.11); EST GLOMERULAR FILTRATION RATE > 60 ML/MIN (60-); GLUCOSE 97 mg/dL (74-118); POTASSIUM 3.4 mmol/L (3.5-5.1); SODIUM 141 mmol/L (136-145)
[2019-03-25 06:43] LABS: BASOPHILS # (AUTO) 0.1 (0.0-0.1); BASOPHILS % 0.5 % (0.0-1.0); EOSINOPHILS # (AUTO) 0.2 (0.0-0.4); EOSINOPHILS % 1.8 % (0.0-6.0); HEMATOCRIT 23.5 % (34.2-44.1); MEAN CORPUSCULAR HEMOGLOBIN 23.6 pg (28-32); MEAN CORPUSCULAR HGB CONC 29.8 g/dL (31-35); MEAN CORPUSCULAR VOLUME 79.4 fL (81-99); MONOCYTES # (AUTO) 0.8 (0.2-0.8); NEUTROPHILS # (AUTO) 6.9 (2.1-6.9); NEUTROPHILS % 68.6 % (38.7-80.0); PLATELET COUNT 631 x10e3/uL (140-360); RED BLOOD COUNT 2.96 x10e6/uL (3.6-5.1); RED CELL DISTRIBUTION WIDTH 20.6 % (11.7-14.4)
[2019-03-25 07:05] VITALS: BP 120/72
[2019-03-25 07:05] LABS: ANION GAP 12.3 mmol/L (8-16); BLOOD UREA NITROGEN 6 mg/dL (7-26); BUN/CREATININE RATIO 13 (6-25); CALCIUM 9.3 mg/dL (8.4-10.2); CARBON DIOXIDE 32 mmol/L (22-29); CHLORIDE 98 mmol/L (98-107); CREATININE, SERUM 0.47 mg/dL (0.57-1.11); EST GLOMERULAR FILTRATION RATE > 60 ML/MIN (60-); GLUCOSE 98 mg/dL (74-118); POTASSIUM 3.3 mmol/L (3.5-5.1); SODIUM 139 mmol/L (136-145)
[2019-03-25] MEDS: ONDANSETRON HCL INJ 2MG/ML 2ML 2 MG/ML VIAL IV PRN ×3 (07:05→20:14)
[2019-03-25] MEDS: HYDROMORPHONE 1MG/1ML INJ IV PRN ×3 (07:05→20:14)
--- NOTE | 2019-03-25 07:29 | Diagnostic Imaging Report ---
EXAMINATION: CHEST SINGLE (PORTABLE) INDICATION: Thoracotomy, decortication with chest tubes. COMPARISON: Chest radiograph 03/24/2019. FINDINGS: TUBES and LINES: Stable two left-sided chest tubes with distal tips projecting at the apex. Right IJ non-tunneled central venous catheter with tip terminating in the proximal right atrium. LUNGS: No significant interval change in opacification of the lower left hemithorax and obscuration of the left hemidiaphragm, likely reflecting a combination of moderate pleural effusion and atelectasis. Right lung is grossly clear. PLEURA: No pleural effusion or pneumothorax. HEART AND MEDIASTINUM: The cardiomediastinal silhouette is partially obscured. BONES AND SOFT TISSUES: No acute osseous abnormality. There is amorphous hyperdensity near the left greater tuberosity, suggestive of calcific tendinopathy. UPPER ABDOMEN: No free air under the diaphragm. IMPRESSION: Unchanged appearance of moderate left pleural effusion with associated atelectasis. Signed by: Dr. Chanelle Sullivan MD on 03/25/2019 7:25 AM
[2019-03-25 07:30] VITALS: BP 120/72
[2019-03-25] MEDS: METOPROLOL TARTRATE 25 MG TAB PO SCH ×2 (08:24→20:15)
[2019-03-25] MEDS: HYDROCODONE/APAP 10MG-325MG TAB PO PRN (09:41)
[2019-03-25] MEDS ORDERED: MORPHINE SULFATE 2 MG/ML SYR 1ML IV STA (10:47)
[2019-03-25] MEDS ORDERED: MORPHINE SULFATE 2 MG/ML SYR 1ML ONE (10:54)
--- NOTE | 2019-03-25 11:11 | NUR ---
chest tube removed at bedside by Dr. Graham, patient given Morphine 2mg IVP stat, dressing applied to site, call placed to Radiology for STAT chest x ray
[2019-03-25] MEDS ORDERED: SODIUM CHLORIDE 0.9% 250ML 250 ML IV ONE (11:45)
--- NOTE | 2019-03-25 11:57 | Diagnostic Imaging Report ---
Chest, portable AP view History: Status post chest tube removal Comparison: Earlier the same day at 6:42 AM IMPRESSION: There has been interval removal of left-sided chest tubes. There is no evidence of pneumothorax. There is continued patchy opacity at the left base which is likely secondary to a small effusion and associated atelectasis. Right IJ central venous catheter tip terminates at the cavoatrial junction. Heart is within normal limits size. Right lung is grossly clear. Signed by: Dallas Scanlon MD on 03/25/2019 11:53 AM
[2019-03-25] MEDS ORDERED: POTASSIUM CHLORIDE 20 MEQ TAB CR PO ONE (12:15)
[2019-03-25 12:46] VITALS: BP 94/61
[2019-03-25] MEDS ORDERED: SODIUM CHLORIDE 0.9% 250ML 250 ML ONE ×2 (15:38→22:49)
--- NOTE | 2019-03-25 15:53 | Progress Note ---
DATE: 03/25/2019 Medicine Progress Note SUBJECTIVE: The patient's chest tubes were removed today by CV surgery. The patient reports some minimal pain in the chest wall. She also anemic and she is going to get receive 2 units packed RBCs. OBJECTIVE: VITAL SIGNS: Temperature is 98.9, pulse 106, respiratory rate 21, blood pressure 120/72, and pulse ox 100% on room air. GENERAL: Not in acute distress. Alert and oriented x3. Cooperative on examination. HEENT: Head is normocephalic and atraumatic. Eyes; pupils are equal, round, and reactive to light bilaterally. Extraocular movements are intact bilaterally. Neck is supple, good range of motion. Throat; no evidence of erythema or exudates in the posterior pharynx. Has poor dentition. PULMONARY: She is clear to auscultation bilaterally. Chest tubes were removed today 03/25/2019. CARDIOVASCULAR: Positive S1, S2. No murmurs, rubs, or gallops. ABDOMEN: Soft, nondistended, and nontender to palpation. Bowel sounds present. MUSCULOSKELETAL: Strength is 5/5 throughout. No evidence of any muscle deficits on examination. No weakness appreciated. NEUROLOGIC: Cranial nerve II through XII grossly intact. No evidence of any neurological deficits on exam. SKIN: Intact. Warm to touch. Good cap refill. PSYCHIATRIC: Normal affect and mood. EXTREMITIES: No edema. Good range of motion throughout. LAB FINDINGS: Show white count was 10, much improved, hemoglobin 7, hematocrit 23, and platelets of 631. Coagulation; noted. Chemistry; sodium 139, potassium 3.3, chloride 98, bicarb 32, anion gap of 12, BUN is 6, creatinine is 0.47, calcium is 9.3. MICROBIOLOGY: Noted. IMPRESSION: 1. Sepsis, secondary to left lung effusion, status post decortication, now status post two chest tubes removed today 03/25/2019, with improving white count. Secondary to community-acquired pneumonia. 2. Community-acquired pneumonia. 3. Electrolyte abnormalities. 4. Coagulopathy with underlying anemia. 5. Anemia. PLAN: At this time, we will go ahead and type and screen and transfuse 2 units packed RBCs. Give Lasix in between the blood transfusions. Stop IV fluids. Pain control. Chest tubes were removed today. Pending pathology results. We will keep the patient through the weekend. Monitor her pain control. She will likely need more diuresing. Get a.m. labs. Replace potassium. If the pathology is not available by Thursday or Thursday, we will go ahead and discharge and have her follow very closely with the consultants. I discussed this with the patient at bedside with the nurse present. MD CIELO Small/CARLYN /[id number]
[2019-03-25 16:04] VITALS: BP 100/65
--- NOTE | 2019-03-25 17:24 | Progress Note ---
DATE: 03/25/2019 PRINCIPAL PROBLEM: Left pleural effusion. SUBJECTIVE: Sitting up in bed. Breathing comfortably. OBJECTIVE: VITAL SIGNS: Blood pressure 120/70 with pulse 80 and regular. Chest tube in place. HEENT: Extraocular motion full. Mucous membranes moist. NECK: Supple, nontender. CARDIAC: Regular rate and rhythm. No rub or murmur. LUNGS: Breath sounds still diminished on the left side. Chest tube is not draining. There is no air leak. On the right, breath sounds are full and clear. ABDOMEN: Globoid, benign. Good bowel sounds. WOUND: Clean and dry. IMAGING: Chest x-ray: There is some residual left pleural effusion. No pneumothorax. PATHOLOGY: Still pending. I called the pathology lab. The registered veterinary technician said this may have been sent out for a second opinion. However, I was unable to get more information. IMPRESSION: Recovering from decortication. Pathology still pending. Chest tubes removed. MD LUDIN Faith/CARLYN /[id number]
[2019-03-25 19:00] VITALS: BP 121/74
--- NOTE | 2019-03-25 20:00 | NUR ---
I units of blood transfusing completed at this time. Will continue to monitor.
[2019-03-25] MEDS: FUROSEMIDE INJ 10 MG/ML 4 ML VIAL IV PRN (20:14)
[2019-03-25 21:00] VITALS: BP 106/71
--- NOTE | 2019-03-25 22:55 | NUR ---
II units of blood transfusing at this time as order. Patient tolerated well. Will continue to monitor.
[2019-03-25] MEDS: ACETAMINOPHEN 325 MG TAB PO PRN (23:40)
[2019-03-26] VITALS (9 sets, daily range): BP systolic 96–114; BP diastolic 33–83
[2019-03-26] MEDS: CEFTRIAXONE SOD 2 GM/NS 100 ML 100 ML IV SCH (00:45)
[2019-03-26] MEDS: FUROSEMIDE INJ 10 MG/ML 4 ML VIAL IV PRN (00:46)
[2019-03-26] MEDS: HYDROMORPHONE 1MG/1ML INJ IV PRN ×2 (04:17→07:30)
[2019-03-26] MEDS: ONDANSETRON HCL INJ 2MG/ML 2ML 2 MG/ML VIAL IV PRN (04:17)
[2019-03-26 04:46] LABS: BASOPHILS # (AUTO) 0.1 (0.0-0.1); BASOPHILS % 0.5 % (0.0-1.0); EOSINOPHILS # (AUTO) 0.2 (0.0-0.4); EOSINOPHILS % 1.1 % (0.0-6.0); HEMATOCRIT 30.9 % (34.2-44.1); HEMOGLOBIN 9.7 g/dL (12.0-16.0); LYMPHOCYTES # (AUTO) 2.1 (1.0-3.2); LYMPHOCYTES % 14.3 % (18.0-39.1); MEAN CORPUSCULAR HEMOGLOBIN 24.9 pg (28-32); MEAN CORPUSCULAR HGB CONC 31.4 g/dL (31-35); MEAN CORPUSCULAR VOLUME 79.2 fL (81-99); MONOCYTES # (AUTO) 1.1 (0.2-0.8); MONOCYTES % 7.4 % (4.4-11.3); NEUTROPHILS % 75.8 % (38.7-80.0); PLATELET COUNT 627 x10e3/uL (140-360); RED CELL DISTRIBUTION WIDTH 20.2 % (11.7-14.4)
[2019-03-26 05:03] LABS: ANION GAP 15.4 mmol/L (8-16); BLOOD UREA NITROGEN 8 mg/dL (7-26); BUN/CREATININE RATIO 15 (6-25); CALCIUM 9.9 mg/dL (8.4-10.2); CARBON DIOXIDE 36 mmol/L (22-29); CHLORIDE 93 mmol/L (98-107); CREATININE, SERUM 0.53 mg/dL (0.57-1.11); EST GLOMERULAR FILTRATION RATE > 60 ML/MIN (60-); GLUCOSE 109 mg/dL (74-118); POTASSIUM 3.4 mmol/L (3.5-5.1); SODIUM 141 mmol/L (136-145)
--- NOTE | 2019-03-26 05:31 | NUR ---
Tabares catheter removed at this time as MD's ordered. Will continue to monitor.
--- NOTE | 2019-03-26 06:07 | Diagnostic Imaging Report ---
Examination: Single AP view of the chest. COMPARISON: Portable chest 03/25/2019 INDICATION: Thoracotomy and cortication IMPRESSION: 1. Lines and Tubes: Stable right IJ central line. 2. No interval change in left lower lung opacity and partial obscuration of left hemidiaphragm, likely representing a left-sided pleural effusion and associated atelectasis. Signed by: Dr. Ashkan Champagne M.D. on 03/26/2019 6:03 AM
--- NOTE | 2019-03-26 07:08 | NUR ---
Report given to oncoming nurse,walking round done
[2019-03-26] MEDS: PANTOPRAZOLE SOD 40 MG TABEC PO SCH (09:00)
[2019-03-26] MEDS: METOPROLOL TARTRATE 25 MG TAB PO SCH ×2 (09:00→20:15)
[2019-03-26] MEDS ORDERED: POTASSIUM CHLORIDE 20 MEQ TAB CR PO NR (09:30)
[2019-03-26] MEDS: HYDROCODONE/APAP 10MG-325MG TAB PO PRN ×2 (12:01→18:38)
--- NOTE | 2019-03-26 12:03 | Progress Note ---
DATE: 03/26/2019 Medicine Progress Note SUBJECTIVE: The patient still reports having some pain in the chest wall area after the chest tubes were removed. She is still getting quite a bit of IV Dilaudid, which I am in the process of discontinuing and try to get her all prep for discharge soon on oral [place]. I discussed this with the patient as well. I am still waiting on the final results on the pathology. I did speak with the consultants with CV surgeon and marine mechanic. The concern that this could be maybe an underlying malignancy. I do have Hematology/Oncology on board as well. According to CV surgery's note, the pathology was sent for a second opinion. I am not sure exactly what the preliminary results are, but we are still waiting on the results. I did explain this to the patient at bedside. PHYSICAL EXAMINATION: VITAL SIGNS: Temperature is 97.6, T-max is 100.6, pulse is 110, respiratory rate is 18, blood pressure 109/61, pulse ox 100% on 2 L nasal cannula. GENERAL: Not in acute distress, alert, oriented x3. Cooperative on examination. HEENT: Head normocephalic and atraumatic. Eyes; pupils are equal, round, and reactive to light bilaterally. Extraocular movements are intact bilaterally. NECK: Supple. Good range of motion. Throat; no evidence of erythema or exudates in the posterior pharynx. Has poor dentition. PULMONARY: Clear to auscultation bilaterally. No wheezing, no rales, no rhonchi, no crackles appreciated. CARDIOVASCULAR: Positive S1, S2. No murmurs, rubs, or gallops appreciated. ABDOMEN: Soft, nondistended, and nontender to palpation. Bowel sounds present. MUSCULOSKELETAL: Strength is 5/5 throughout. No evidence of any muscle deficits on examination. No weakness appreciated. NEUROLOGIC: Cranial nerves II through XII are grossly intact. No evidence of neurological deficits on exam. SKIN: Intact. Warm to touch. Good cap refill. PSYCHIATRIC: Normal affect and mood. EXTREMITIES: She does have some edema possibly around 1+ pedal edema bilateral lower extremities. LABORATORY FINDINGS: Show white count is 14.5, hemoglobin 9.7, hematocrit is 30.9, platelets of 627. Chemistry; sodium 141, potassium 3.4, chloride 93, bicarbonate 36, anion gap of 15, BUN is 8, creatinine is 0.53, glucose 109, calcium is 9.9. Chest x-ray from this morning showed no interval change in the left lower lung opacity and partial perforation of the left hemidiaphragm, likely representing a left-sided pleural effusion associated atelectasis. IMPRESSION: 1. Sepsis due to a left lung empyema, status post decortication with chest tubes removed on 03/25/2019. 2. Community-acquired pneumonia. 3. Electrolyte abnormalities. 4. Coagulopathy with underlying anemia. 5. Anemia. PLAN: At this time after blood transfusion, her hemoglobin is much improved. Her white count was elevated today at 14. She is still on IV antibiotics, being managed by ID. I will go ahead and discontinue IV Dilaudid and try to work on oral pain medications in order for her to go home soon. I am still waiting on the pathology results. I did discuss this with CV Surgery and the marine mechanic. The patient may have some abnormal pathology, but we do not have the final results, but I did discuss this with the patient. I am waiting on the results may be abnormal, but I am not sure 100% at this time. I did discuss with her that I would like to speak with her and if she will allow me to speak to her mother in order for the patient to have very close followup with an oncologist, which we have on the case. On any rate, I will continue with same plan of care for now, get a.m. labs. Possibly sometime early next week, we will be able to discharge her with pain control, but needs very, very, very close followup with the consultants in the event that the pathology results are not available. Currently, there being sent out and may take a while before the results are back. I explained this to the patient, she verbalized understanding and also discussed with the floor nurse. MD CIELO Small/CARLYN /[id number]
[2019-03-26] MEDS: FUROSEMIDE INJ 10 MG/ML 4 ML VIAL IV SCH ×2 (12:04→20:15)
[2019-03-26] MEDS: VANCOMYCIN 1GM/NS 250 ML 250 ML IV SCH ×2 (12:04→23:14)
[2019-03-26] MEDS: MEROPENEM 500MG/ NS 50ML 50 ML IV SCH ×2 (14:00→21:49)
[2019-03-26] MEDS ORDERED: HYDROCODONE/APAP 10MG-325MG TAB PO ONE (21:00)
[2019-03-27 03:00] VITALS: BP 111/72
[2019-03-27] MEDS: HYDROCODONE/APAP 10MG-325MG TAB PO PRN ×4 (03:24→19:30)
[2019-03-27 05:17] LABS: BASOPHILS # (AUTO) 0.1 (0.0-0.1); BASOPHILS % 0.5 % (0.0-1.0); EOSINOPHILS # (AUTO) 0.3 (0.0-0.4); EOSINOPHILS % 2.2 % (0.0-6.0); HEMOGLOBIN 10.2 g/dL (12.0-16.0); LYMPHOCYTES # (AUTO) 1.7 (1.0-3.2); LYMPHOCYTES % 14.9 % (18.0-39.1); MEAN CORPUSCULAR HEMOGLOBIN 24.8 pg (28-32); MEAN CORPUSCULAR HGB CONC 30.9 g/dL (31-35); MEAN CORPUSCULAR VOLUME 80.1 fL (81-99); MONOCYTES # (AUTO) 1.1 (0.2-0.8); MONOCYTES % 9.8 % (4.4-11.3); NEUTROPHILS # (AUTO) 8.2 (2.1-6.9); NEUTROPHILS % 71.6 % (38.7-80.0); PLATELET COUNT 609 x10e3/uL (140-360); RED BLOOD COUNT 4.12 x10e6/uL (3.6-5.1); RED CELL DISTRIBUTION WIDTH 20.8 % (11.7-14.4)
[2019-03-27 05:51] LABS: ANION GAP 15.3 mmol/L (8-16); BLOOD UREA NITROGEN 11 mg/dL (7-26); BUN/CREATININE RATIO 20 (6-25); CARBON DIOXIDE 36 mmol/L (22-29); CHLORIDE 92 mmol/L (98-107); CREATININE, SERUM 0.56 mg/dL (0.57-1.11); EST GLOMERULAR FILTRATION RATE > 60 ML/MIN (60-); GLUCOSE 104 mg/dL (74-118); POTASSIUM 3.3 mmol/L (3.5-5.1); SODIUM 140 mmol/L (136-145)
--- NOTE | 2019-03-27 06:50 | Diagnostic Imaging Report ---
Examination: Single AP view of the chest. COMPARISON: AP chest 03/26/2019 INDICATION: Thoracotomy and decortication IMPRESSION: 1. Lines and Tubes: Stable right IJ central line. 2. No interval change in left lower lung opacity and partial obscuration of left hemidiaphragm, likely representing a left-sided pleural effusion and associated atelectasis. 3. Cardiomediastinal silhouette is normal. Pulmonary vasculature is normal. 4. No acute bony abnormalities. Signed by: Dr. Ashkan Champagne M.D. on 03/27/2019 6:46 AM
[2019-03-27] MEDS: MEROPENEM 500MG/ NS 50ML 50 ML IV SCH ×3 (06:56→21:06)
[2019-03-27 08:00] VITALS: BP 103/64
[2019-03-27] MEDS: METOPROLOL TARTRATE 25 MG TAB PO SCH ×2 (09:00→21:06)
[2019-03-27] MEDS: PANTOPRAZOLE SOD 40 MG TABEC PO SCH (09:00)
[2019-03-27] MEDS: FUROSEMIDE INJ 10 MG/ML 4 ML VIAL IV SCH (09:00)
[2019-03-27] MEDS: VANCOMYCIN 1GM/NS 250 ML 250 ML IV SCH ×2 (10:51→21:34)
[2019-03-27 12:00] VITALS: BP 105/67
[2019-03-27] MEDS: SODIUM CHLORIDE 0.9% 1000ML 1,000 ML IV SCH ×2 (12:45→22:29)
[2019-03-27] MEDS: LIDOCAINE 5% PATCH TP SCH (12:45)
--- NOTE | 2019-03-27 13:50 | Progress Note ---
DATE: 03/27/2019 Medicine Progress Note SUBJECTIVE: The patient is still complaining of pain in the left chest wall area. She says that the oral [place] is helping. I will add lidocaine patches. PHYSICAL EXAMINATION: VITAL SIGNS: Temperature is 98, pulse is 116, respiratory rate is 17, blood pressure 108/64, pulse ox 100% on 2 L nasal cannula. GENERAL: Not in acute distress, alert, oriented x3. Cooperative on examination. HEENT: Head; normocephalic and atraumatic. Eyes; pupils are equal, round, and reactive to light bilaterally. Extraocular movements are intact bilaterally. Throat; no evidence of erythema or exudates in the posterior pharynx. Has poor dentition. NECK: Supple. Good range of motion. PULMONARY: Clear to auscultation bilaterally. No wheezing, no rales, no rhonchi, no crackles appreciated. CARDIOVASCULAR: Positive S1, S2. No murmurs, rubs, or gallops appreciated. ABDOMEN: Soft, nondistended, and nontender to palpation. Bowel sounds present. MUSCULOSKELETAL: Strength is 5/5 throughout. No evidence of any muscle deficits on examination. No weakness appreciated. NEUROLOGIC: Cranial nerves II through XII are grossly intact. No evidence of neurological deficits on exam. SKIN: Intact. Warm to touch. Good cap refill. PSYCHIATRIC: Normal affect and mood. EXTREMITIES: No edema. Good range of motion throughout. LABORATORY DATA: Lab findings show white count 11.4, hemoglobin 10.2, hematocrit 33, platelets of 609. Chemistry; sodium 140, potassium 3.3, chloride 92, bicarb 36, anion gap of 15, BUN is 11, creatinine is 0.56, glucose 104, calcium is 10. MICROBIOLOGY: Repeat blood cultures of yesterday were found to be no growth today. IMPRESSION: 1. Sepsis secondary to left lung empyema, status post decortication with chest tubes removed on 03/25/2019. 2. Community-acquired pneumonia. 3. Electrolyte abnormalities. 4. Coagulopathy with underlying anemia. 5. Musculoskeletal, left chest wall pain. PLAN: At this time, hemoglobin is improved tremendously. White count is improved. Blood cultures repeat shows no growth to date. Continue with IV antibiotics being managed by ID. We are going to continue to maximize the oral pain medication and avoid IV pain medication in order for her preferred to go home soon. Still awaiting on pathology results. I will add lidocaine patch to the left chest wall. Continue following with Pulmonary and ID. Get a.m. labs. I discussed plan of care with the patient at bedside. Hopefully sometime once the pathology is back, I will talk about the overall plan of care with the patient and the patient's family if she will allow me. Otherwise, we will continue with same plan of care and monitor closely. MD CIELO Small/MODL /[id number]
[2019-03-27 16:10] VITALS: BP 107/79
[2019-03-27 20:00] VITALS: BP 115/74
[2019-03-27 21:12] VITALS: BP 115/77
[2019-03-28] VITALS (8 sets, daily range): BP systolic 98–118; BP diastolic 41–85
[2019-03-28] MEDS: HYDROCODONE/APAP 10MG-325MG TAB PO PRN ×4 (01:00→20:30)
[2019-03-28] MEDS: MEROPENEM 500MG/ NS 50ML 50 ML IV SCH ×3 (05:58→20:51)
[2019-03-28 06:30] LABS: BASOPHILS # (AUTO) 0.1 (0.0-0.1); BASOPHILS % 0.6 % (0.0-1.0); EOSINOPHILS # (AUTO) 0.2 (0.0-0.4); EOSINOPHILS % 2.3 % (0.0-6.0); HEMATOCRIT 29.5 % (34.2-44.1); LYMPHOCYTES # (AUTO) 1.9 (1.0-3.2); LYMPHOCYTES % 21.6 % (18.0-39.1); MEAN CORPUSCULAR HEMOGLOBIN 24.8 pg (28-32); MEAN CORPUSCULAR HGB CONC 30.5 g/dL (31-35); MEAN CORPUSCULAR VOLUME 81.3 fL (81-99); MONOCYTES % 11.3 % (4.4-11.3); NEUTROPHILS # (AUTO) 5.6 (2.1-6.9); NEUTROPHILS % 63.5 % (38.7-80.0); PLATELET COUNT 525 x10e3/uL (140-360); RED BLOOD COUNT 3.63 x10e6/uL (3.6-5.1); RED CELL DISTRIBUTION WIDTH 20.5 % (11.7-14.4)
[2019-03-28 06:43] LABS: ANION GAP 10.7 mmol/L (8-16); BLOOD UREA NITROGEN 11 mg/dL (7-26); BUN/CREATININE RATIO 22 (6-25); CALCIUM 9.4 mg/dL (8.4-10.2); CARBON DIOXIDE 34 mmol/L (22-29); CHLORIDE 97 mmol/L (98-107); CREATININE, SERUM 0.49 mg/dL (0.57-1.11); EST GLOMERULAR FILTRATION RATE > 60 ML/MIN (60-); GLUCOSE 94 mg/dL (74-118); POTASSIUM 3.7 mmol/L (3.5-5.1); SODIUM 138 mmol/L (136-145)
--- NOTE | 2019-03-28 07:11 | Diagnostic Imaging Report ---
Examination: Single AP view of the chest. COMPARISON: AP chest 03/27/2019 INDICATION: Thoracotomy and decortication IMPRESSION: 1. Lines and Tubes: Stable right IJ central line. 2. No interval change in left lower lung opacity and partial obscuration of the left hemidiaphragm, likely representing a left-sided effusion and associated atelectasis. 3. Cardiomediastinal silhouette is normal. Pulmonary vasculature is normal. 4. No acute bony abnormalities. Signed by: Dr. Ashkan Champagne M.D. on 03/28/2019 7:07 AM
[2019-03-28] MEDS: SODIUM CHLORIDE 0.9% 1000ML 1,000 ML IV SCH ×3 (08:45→18:45)
[2019-03-28] MEDS: LIDOCAINE 5% PATCH TP SCH (09:30)
[2019-03-28] MEDS: PANTOPRAZOLE SOD 40 MG TABEC PO SCH (10:00)
[2019-03-28] MEDS: METOPROLOL TARTRATE 25 MG TAB PO SCH ×2 (10:00→20:51)
[2019-03-28] MEDS: VANCOMYCIN 1GM/NS 250 ML 250 ML IV SCH ×2 (10:50→21:27)
--- NOTE | 2019-03-28 12:52 | NUR ---
MD MENA INTO SEE PT, DISCUSSED WITH PT AND PARENTS HOW IMPORTANT IT IS TO FOLLOW UP REGARDING PENDING PATHOLOGY, FOR RESULTS AND CARE, PT AND PARENTS VERBALIZED UNDERSTANDING AND STATE THEY HAVE A PACKET GIVEN BY [employer]ATING [employer]ACH[employer]PERATOR HELPER OF PHYSICIANS AND PHARMACIES TO LOOK AT FOR ASSISTANCE
--- NOTE | 2019-03-28 13:21 | NUR ---
DR MENA SPOKE WITH PT AND PT'S MOTHER TODAY REGARDING IMPORTANCE OF OP F/U REGARDING LUNG BX REPORT DR YOST HAS AGREED TO SEE PT AND DISCUSS PATH REPORT AND PLAN AFTER DISCHARGE PT HAS NAME, NUMBER AND ADDRESS FOR DR YOST AND HAS AGREED TO F/U CLOSELY WITH HIM UPON DISCHARGE PLAN DC HOME TOMORROW
[2019-03-28] MEDS ORDERED: FUROSEMIDE INJ 10 MG/ML 4 ML VIAL IV ONE (13:30)
--- NOTE | 2019-03-28 14:13 | Progress Note ---
DATE: 03/28/2019 Medicine Progress Note. SUBJECTIVE: The patient doing well today with no complaints. The patient's parents were at bedside and I discussed with them overall findings. Further dictation will be under assessment and plan. PHYSICAL EXAMINATION: VITAL SIGNS: Temperature is 96.8, pulse is 100, respiratory rate 22, blood pressure 118/85, and pulse ox is 100% on room air. GENERAL: Not in acute distress, alert, oriented x3. Cooperative on examination. HEENT: Head; normocephalic and atraumatic. Eyes; pupils are equal, round, and reactive to light bilaterally. Extraocular movements are intact bilaterally. Throat; no evidence of erythema or exudates in the posterior pharynx. Has poor dentition. NECK: Supple. Good range of motion. PULMONARY: Clear to auscultation bilaterally. No wheezing, no rales, no rhonchi, no crackles appreciated. CARDIOVASCULAR: Positive S1, S2. No murmurs, rubs, or gallops appreciated. ABDOMEN: Soft, nondistended, and nontender to palpation. Bowel sounds present. MUSCULOSKELETAL: Strength is 5/5 throughout. No evidence of any muscle deficits on examination. No weakness appreciated. NEUROLOGIC: Cranial nerves II through XII are grossly intact. No evidence of neurological deficits on exam. SKIN: Intact. Warm to touch. Good cap refill. PSYCHIATRIC: Normal affect and mood. EXTREMITIES: No edema. Good range of motion throughout. LAB FINDINGS: Show white count 8.8, hemoglobin 9, hematocrit 29.5, platelets of 525. Chemistries: Sodium 138, potassium 3.7, chloride 97, bicarb 34, anion gap of 10, BUN is 11, creatinine is 0.49, glucose 94, calcium is 9.4. Repeat blood culture shows no growth today. IMAGING STUDIES: Chest x-ray this morning shows no interval change in the left lower lung opacity and partial obscuration of the left hemidiaphragm, likely representing a left-sided effusion, associated atelectasis. IMPRESSION: 1. Sepsis secondary to left lung empyema status post decortication with chest tubes removed on 03/25/2019. 2. Community-acquired pneumonia. 3. Electrolyte abnormalities. 4. Coagulopathy with underlying anemia. 5. Musculoskeletal left chest wall pain. PLAN: At this time, I spent a significant period of time speaking with the patient's parents, Rekha Rodriguez, with nurse Diamante throughout the entire conversation. I reviewed the entire case with them throughout the whole entire hospital course that occurred in which she had a pretty bad infection with a left lung empyema due to a sickness before she came into the hospital that occurred several weeks ago. She underwent decortication, had chest tubes placed, and the chest tubes are now currently removed. The concerning part is that the underlying finding of the pathology, which right now we do not know the final result, but is concerning for possible malignancy, but we are not sure at this current moment. Pathology had called Pulmonary and CV surgeon and reported that these were abnormal findings and was sent to a second pathologist to review the case again. At this time, I wanted to reiterate with the family and the patient that it is very vital and important to follow up with our oncologist or the PCP to send you or refer you to the appropriate consultants and also to have the final pathology results read to them. At this time, they are not available. The pathology report is not available at this time. It may take a significant period of time before the results are truly back. They understand the findings. They understand entire hospital course and they think the everything that we have done for their daughter. They will follow up with the oncologist that we provided and they will also try working on with [facility]. Also, they provided a list of all primary care physicians, our caser provided to them, and that they can call make an appointment, but I have urged them the importance of truly, truly following up on these pathology results as they may take a while before the results are back. I cannot promise them what the results are, but they were suspicious on the initial evaluation by the initial pathologist. They verbalized understanding and agreed to plan of care. The nurse was available throughout the entire conversation and the family verbalized understanding. At this time, I will have all the consultants come talk with her today. The plan is to discharge tomorrow on some pain medication and she needs to follow up very closely with the appropriate consultants as described above. MD CIELO Small/CARLYN /[id number]
--- NOTE | 2019-03-28 15:46 | NUR ---
PT HAS NO EDEMA AT THIS TIME, SPOKE WITH MD MENA, ORDERS NOTED TO LIZZY CHERRY
--- NOTE | 2019-03-28 16:26 | NUR ---
PT SITTING ON EDGE OF BED, STATES PAIN IS "BETTER, 3/10" AT THIS TIME
--- NOTE | 2019-03-28 16:51 | NUR ---
Discontinuing skilled physical therapy services since patient is independent in functional mobility. Thank you. Addendum: 03/28/19 at 1652 by Mike cole PT Amended: Links added.
--- NOTE | 2019-03-28 18:42 | NUR ---
VOICES NO C/O AT THIS TIME, REPORTS PAIN BETTER, CALL LIGHT WITHIN REACH
[2019-03-28] MEDS: MELATONIN 5 MG TABLET PO PRN (21:25)
[2019-03-29] VITALS: BP 97/61
[2019-03-29] MEDS: HYDROCODONE/APAP 10MG-325MG TAB PO PRN ×3 (01:06→14:09)
[2019-03-29 04:00] VITALS: BP 118/82
[2019-03-29] MEDS: SODIUM CHLORIDE 0.9% 1000ML 1,000 ML IV SCH (04:22)
[2019-03-29] MEDS: MEROPENEM 500MG/ NS 50ML 50 ML IV SCH ×2 (05:09→14:00)
[2019-03-29 05:33] LABS: BASOPHILS % 0.3 % (0.0-1.0); EOSINOPHILS # (AUTO) 0.2 (0.0-0.4); EOSINOPHILS % 2.4 % (0.0-6.0); LYMPHOCYTES # (AUTO) 1.9 (1.0-3.2); LYMPHOCYTES % 21.8 % (18.0-39.1); MEAN CORPUSCULAR HEMOGLOBIN 24.6 pg (28-32); MONOCYTES # (AUTO) 0.8 (0.2-0.8); MONOCYTES % 8.8 % (4.4-11.3); NEUTROPHILS # (AUTO) 5.7 (2.1-6.9); NEUTROPHILS % 66.1 % (38.7-80.0); PLATELET COUNT 518 x10e3/uL (140-360); RED BLOOD COUNT 3.66 x10e6/uL (3.6-5.1); RED CELL DISTRIBUTION WIDTH 20.5 % (11.7-14.4)
[2019-03-29 05:55] LABS: ANION GAP 11.5 mmol/L (8-16); BLOOD UREA NITROGEN 9 mg/dL (7-26); BUN/CREATININE RATIO 17 (6-25); CARBON DIOXIDE 31 mmol/L (22-29); CHLORIDE 99 mmol/L (98-107); CREATININE, SERUM 0.52 mg/dL (0.57-1.11); EST GLOMERULAR FILTRATION RATE > 60 ML/MIN (60-); GLUCOSE 92 mg/dL (74-118); POTASSIUM 3.5 mmol/L (3.5-5.1); SODIUM 138 mmol/L (136-145)
--- NOTE | 2019-03-29 07:28 | Diagnostic Imaging Report ---
EXAMINATION: CHEST SINGLE (PORTABLE) INDICATION: ^thoracotomy decortication w chest tubes ^[id number] ^[id number] COMPARISON: 03/28/2019 FINDINGS: AP view TUBES and LINES: Stable right IJ central line. LUNGS: Lungs are well inflated. Unchanged left pleural effusion with adjacent atelectasis/scarring. PLEURA: No pneumothorax. HEART AND MEDIASTINUM: The cardiomediastinal silhouette is unremarkable. BONES AND SOFT TISSUES: No acute osseous lesion. Soft tissues are unremarkable. UPPER ABDOMEN: No free air under the diaphragm. IMPRESSION: No significant interval change from prior exam. Unchanged left pleural effusion with adjacent atelectasis/scarring. Underlying pneumonia cannot be excluded. Signed by: Dr. Swapnil Young MD on 03/29/2019 7:25 AM
[2019-03-29 08:00] VITALS: BP 111/63
[2019-03-29] MEDS: PANTOPRAZOLE SOD 40 MG TABEC PO SCH (08:00)
[2019-03-29] MEDS: LIDOCAINE 5% PATCH TP SCH (08:00)
[2019-03-29] MEDS: METOPROLOL TARTRATE 25 MG TAB PO SCH (08:00)
[2019-03-29] MEDS: VANCOMYCIN 1GM/NS 250 ML 250 ML IV SCH (10:45)
[2019-03-29 11:55] VITALS: BP 98/68
--- NOTE | 2019-03-29 13:59 | NUR ---
Per Dr Metz order, patient to discharge home and states understanding to follow up with Dr Duran for oncology/hematology and pending pathology. States understand to follow up with [facility] for primary care.
--- NOTE | 2019-03-29 14:17 | NUR ---
Spoke with Dr Graham, agrees with patient discharging home as per Dr Metz.
--- NOTE | 2019-03-29 14:38 | NUR ---
Spoke with Dr Chato Tenorio, agrees with patient discharging home per Dr Metz's order. Patient states understanding to follow up with Dr Santos and has he pain and keflex Rx to be filled. Mother at bedside for instruction on care of wound per Dr Metz request.
--- NOTE | 2019-03-30 12:20 | Discharge Summary ---
FINAL DISCHARGE DIAGNOSES: 1. Sepsis secondary to a left lung empyema, status post decortication with chest tubes removed on 03/25/2019 with cultures positive for Streptococcus viridans. 2. Community-acquired pneumonia. 3. Electrolyte abnormalities. 4. Coagulopathy. 5. Anemia. 6. Abnormal pathology still pending final results. CONSULTANTS: 1. CV surgery. 2. Pulmonary. 3. Infectious Disease. PHYSICAL EXAMINATION: VITAL SIGNS: Temperature is 97.6, pulse 78, respiratory rate is 18, blood pressure 111/63, pulse ox 100% on room air. LABORATORY FINDINGS: Show white count 8.2, hemoglobin 9, hematocrit 30, platelets of 518. Chemistry; sodium 138, potassium 3.5, chloride 99, bicarb 31, anion gap of 11, BUN is 9, creatinine is 0.52, calcium is 9. Iron saturation was 4%. Total bilirubin is 0.3, AST 16, ALT 10. Troponins were all negative. Albumin was 1.5. Folate is 14, vitamin B12 875. CK 22. Body fluid collection performed 03/11/2019, shows fluid WBCs 95779, RBC 373, LDH 19,892. HIV was nonreactive. MICROBIOLOGY: Blood cultures on admission negative. Pleural fluid culture shows Streptococcus viridans sensitive to Keflex. Repeat blood cultures negative and repeat pleural fluid after decortication shows no organisms. AFB smear final was negative. Repeat blood cultures on 03/26/2019 was negative greater than 72 hours. IMAGING STUDIES: Shoulder x-ray on admission shows no acute osseous injury. Calcific tendinopathy of the left rotator cough. Chest x-ray on admission reported extensive opacification of the left lung likely represents combination of loculated left pleural effusion and airspace consolidation, which may be seen with pneumonia, aspiration or pulmonary hemorrhage. CT chest shows a large loculated left pleural effusion with areas of atelectasis. Calcific tendinopathy of the supraspinatus. A series of x-rays were performed, but the last x-ray performed on 03/29/2019, shows no significant interval change from prior examination. Unchanged left pleural effusion with adjacent atelectasis, underlying pneumonia cannot be excluded. The patient was treated with IV antibiotics for a significant number of weeks while here in the hospital. HOSPITAL COURSE: This is a 33-year-old female, who came into the emergency room with complaints of left shoulder pain, initially thinking that it was more musculoskeletal in etiology, found to have a complete justa out left lung seen on imaging studies CT chest as well as chest x-ray. At that time, Pulmonary was consulted and an attempt for aspiration of the loculated effusion was performed by Pulmonary with unsuccessful, which required CT Surgery Consultation. CT surgery underwent chest tube placement with significant amount of effusion concerning for underlying empyema was removed. Infectious Disease was consulted. The patient was on broad-spectrum IV antibiotics as well. Pleural fluid cultures and empyema cultures were consistent with Streptococcus viridans. Apparently, the patient was sick several weeks ago prior to arrival to the hospital with complaints of cough, congestion, and subjective fever. While here the patient maintained on broad-spectrum IV antibiotics and was discharged on oral Keflex. The patient's hospital course was prolonged as we were waiting for the fluid collection for the entire fluid to be removed. At one point, the patient went to the OR, but due to elevation in PT, PTT, and INR, anesthesia decided not to pursue with Surgery instead needed Hematology/Oncology clearance. The patient received fresh frozen plasma and also was being managed accordingly by Hematology/Oncology. At some point, the patient did underwent left lung empyema decortication and chest tubes were still in place. As per speaking with CT Surgery, there is some suspicious pathology, which are currently not available at this time and I discussed this with CT Surgery and Pulmonary as well personally. There is some concern that the patient may have some underlying malignancy, but at this time they are sending it to a 2nd pathologist for second opinion to have this further evaluated and managed. As per CT Surgery and Pulmonary, they cleared the patient for discharge. Chest tubes were removed on 03/25/2019. She was advised to follow up with CT Surgery and Pulmonary in 2 weeks' time. As per Hematology/Oncology, he was okay, he recommended for the patient to follow up in his office to get the final pathology results. As per Infectious Disease, the patient will go home on oral Keflex 500 mg p.o. t.i.d. quantity of 42 tablets for approximately 14 days. Had a long discussion with the patient as well as the patient's parents, Rekha as well as Michael with the nurse, Diamante present throughout the entire conversation. I described the whole entire hospital admission what occurred and what was not happened. We described that she had a left lung empyema. She was very ill, had undergo decortication in chest tube placements and her cultures were found to be positive for Streptococcus viridans. I also discussed with them about the possibility that the pathology may be underlying malignancy and it sent for second opinion by another pathologist. I also discussed this with Pulmonary CV Surgery. I reiterated with them at this current moment that the pathology results are not available at this time. The patient has been cleared for discharge by all consultants. I discussed with them the importance of following up with a Hematology-Oncologist has been seeing her here and more than happy to see her in the office and give her the final results of the pathology. At this moment on discharge, pathology is not available. I also discussed with her to please follow up very closely with the PCP or even possibly going to [facility] for further management and care. I also discussed with her that we gave her a list of primary care physicians that are willing to see her at any time. I have also given her script for [place] for pain. I have discussed this with the family very thoroughly at bedside with the nursing staff present and discussed and the patient that is very lateral to follow up on these pathology results that they may not flag me with the final results or the flag the rest of the consultants on this case. They verbalized understanding and they agree with plan of care, they are going to follow up very closely with the consultants as described and who has been seeing her here, and they will follow up on the pathology result with the consultants. They verbalized understanding and they agree with plan of care as described above. I reiterated with them the importance of following up very closely and getting the final pathology results. Again, they verbalized understanding. On discharge, the patient was doing well with no other complaints. On the day of discharge, vital signs were stable. Labs reviewed and stable. The patient was seen, evaluated, examined thoroughly on the day of discharge. No other complaints. The patient verbalized understanding and agrees to plan of care to follow up accordingly as an outpatient with the primary care physician in the appropriate consult as described above in the next 1 to 2 weeks. MEDICATIONS: See med reconciliation form including [place] 10 mg one tab p.o. q.6 hours p.r.n. for pain, 25 tablets were given. DISPOSITION: Home. CONDITION: Stable. DIET: Heart healthy. In the event of any worsening symptoms, the patient was advised to come back to the ED for further evaluation. Discharge summary took greater than 35 minutes. Once again, I have talked with the patient, the patient's parents at bedside with the nurse present about the importance of following up very closely on the final results on the pathology and the oncologist is willing to see them in the office. I discussed with them to follow up within one week with the oncologist to get the final pathology results and hopefully by the end the results will be in, but at this current moment on 03/29/2019 at 12:56 p.m., the pathology results are not in. MD CIELO Small/MODL /[id number]
== END 2019-03-29 15:29 | disposition home or self-care (01) | DRG 853 ==
LOC: ER 13:04 → UNDOADMIN 15:21 → ERHOLD 15:21 → IMCU 22:22 → ICU 03-21 16:46 → IMCU 03-22 23:51
PROVIDERS: ADMIT Internal Medicine; ATTEND Internal Medicine
PROC: 0W9B3ZZ Drainage of Left Pleural Cavity, Percutaneous Approach (ICD-10-PCS; 2019-03-11)
PROC: 0W9B30Z Drainage of Left Pleural Cavity with Drainage Device, Percutaneous Approach (ICD-10-PCS; 2019-03-11)
PROC: 30233N1 Transfusion of Nonautologous Red Blood Cells into Peripheral Vein, Percutaneous Approach (ICD-10-PCS; 2019-03-17)
PROC: 30233K1 Transfusion of Nonautologous Frozen Plasma into Peripheral Vein, Percutaneous Approach (ICD-10-PCS; 2019-03-17)
PROC: 0W9B30Z Drainage of Left Pleural Cavity with Drainage Device, Percutaneous Approach (ICD-10-PCS; 2019-03-21)
PROC: 0BNL0ZZ Release Left Lung, Open Approach (ICD-10-PCS; principal; 2019-03-21 13:08)
DX: A41.9 Sepsis, unspecified organism (principal); J85.1 Abscess of lung with pneumonia; J91.8 Pleural effusion in other conditions classified elsewhere; D68.9 Coagulation defect, unspecified; R06.89 Other abnormalities of breathing; B95.4 Other streptococcus as the cause of diseases classified elsewhere; D50.0 Iron deficiency anemia secondary to blood loss (chronic); Z90.01 Acquired absence of eye; Z85.840 Personal history of malignant neoplasm of eye; E87.6 Hypokalemia; E87.8 Other disorders of electrolyte and fluid balance, not elsewhere classified; R07.89 Other chest pain; R65.20 Severe sepsis without septic shock
CPT/HCPCS: 36415; 36600; 71045; 71046; 71250; 80048; 80053; 80202; 81241; 82550; 82553; 82607; 82728; 82746; 82805; 83540; 83605; 83615; 83735; 84157; 84466; 84484; 84702; 85025; 85045; 85230; 85610; 85651; 85730; 86850; 86900; 86920; 87040; 87070; 87071; 87075; 87116; 87205; 87206; 87390; 87536; 88305; 88307; 88331; 89051; 93005; 96360; 96361; 97139; 99283; 99285; G0433; G0435; J0692; J0696; J1100; J1170; J1644; J1756; J1885; J1940; J2001; J2060; J2250; J2270; J2370; J2405; J2543; J3010; J3370; J7030; J7050; P9016; P9017